=== PATIENT | male | born 1955 ===

== ENCOUNTER → 2016-12-08 | Outpatient (CLI) | payer OTHER | END | disposition home or self-care (01) | LOC: C.LABMFLN 09:16 | PROVIDERS: ATTEND Family Medicine | DX: E78.00 Pure hypercholesterolemia, unspecified (principal); G20 Parkinson's disease; I10 Essential (primary) hypertension; R80.9 Proteinuria, unspecified ==

== ENCOUNTER → 2017-04-06 | Outpatient (CLI) | payer OTHER ==
[2017-04-06 18:38] LABS: RATIO 10.7 mcg/mg (0-30.0)
[2017-04-06 18:58] LABS: ALT/SGPT 18 U/L (12-78); AST/SGOT 17 U/L (15-37); BLOOD UREA NITROGEN 20 mg/dl (7-18); BUN/CREATININE RATIO 21.2 (10-20); CALCIUM 8.7 mg/dl (8.5-10.1); CARBON DIOXIDE 27 mmol/L (21-32); CHLORIDE 107 mmol/L (98-107); CHOLESTEROL 145 mg/dl (0-200); CREATININE 0.95 mg/dl (0.60-1.40); GLUCOSE 204 mg/dl (70-99); SODIUM 141 mmol/L (136-145)
[2017-04-06 19:01] LABS: ALB/GLOB RATIO 1.2 (0.9-2); ALKALINE PHOSPHATASE 89 U/L (45-117); CHOLESTEROL/HDL RATIO 3.3; HDL CHOLESTEROL 44 mg/dl; LDL CHOLESTEROL CALCULATED 74 mg/dl; TRIGLYCERIDES 133 mg/dl (0-150); VERY LOW DENSITY LIPOPROT CALC 27 mg/dl
[2017-04-07 07:00] LABS: ESTIMATED AVERAGE GLUCOSE 183 mg/dl; HA1C FLAG Normal (Normal)
== END | disposition home or self-care (01) ==
LOC: C.LABMFLN 15:47
PROVIDERS: ATTEND Family Medicine
DX: E78.00 Pure hypercholesterolemia, unspecified (principal); I10 Essential (primary) hypertension; E11.65 Type 2 diabetes mellitus with hyperglycemia

== ENCOUNTER → 2017-05-22 | Outpatient (CLI) | payer OTHER ==
[2017-05-22 18:15] LABS: BLOOD UREA NITROGEN 15 mg/dl (7-18); BUN/CREATININE RATIO 14.8 (10-20)
== END | disposition home or self-care (01) ==
LOC: C.LABMFLN 16:04
PROVIDERS: ATTEND Family Medicine
DX: G20 Parkinson's disease (principal)

== ENCOUNTER → 2017-08-17 | Outpatient (CLI) | payer OTHER ==
[2017-08-17 17:55] LABS: ALT/SGPT 13 U/L (12-78); AST/SGOT 16 U/L (15-37); BLOOD UREA NITROGEN 17 mg/dl (7-18); BUN/CREATININE RATIO 17.4 (10-20); CALCIUM 8.9 mg/dl (8.5-10.1); CARBON DIOXIDE 29 mmol/L (21-32); CHLORIDE 106 mmol/L (98-107); CREATININE 0.98 mg/dl (0.60-1.40); GLUCOSE 144 mg/dl (70-99); POTASSIUM 4.5 mmol/L (3.5-5.1); SODIUM 141 mmol/L (136-145)
[2017-08-17 18:06] LABS: ALB/GLOB RATIO 1.2 (0.9-2); ALKALINE PHOSPHATASE 94 U/L (45-117); CHOLESTEROL 111 mg/dl (0-200); CHOLESTEROL/HDL RATIO 2.2; HDL CHOLESTEROL 51 mg/dl; LDL CHOLESTEROL CALCULATED 41 mg/dl; THYROID STIMULATING HORMONE 0.637 uIu/ml (0.300-4.500); TRIGLYCERIDES 96 mg/dl (0-150); VERY LOW DENSITY LIPOPROT CALC 19 mg/dl
[2017-08-18 06:57] LABS: ESTIMATED AVERAGE GLUCOSE 174 mg/dl; HA1C FLAG Normal (Normal)
== END | disposition home or self-care (01) ==
LOC: C.LABMFLN 12:33
PROVIDERS: ATTEND Family Medicine
DX: E78.00 Pure hypercholesterolemia, unspecified (principal); I10 Essential (primary) hypertension; E11.65 Type 2 diabetes mellitus with hyperglycemia

== ENCOUNTER → 2017-12-05 | Outpatient (CLI) | payer OTHER ==
[2017-12-05 12:34] LABS: BASO % 0.2 %; BASO ABS # 0.01 K/uL (0-0.2); EOS % 0.9 %; EOS ABS # 0.06 K/uL (0-0.5); HEMOGLOBIN 16.9 g/dL (14.0-18.0); IG# 0.01 K/uL (0.00-0.02); LYMPH ABS # 1.75 K/uL (1.2-3.4); MEAN CELL VOLUME 89.7 fL (80-100); MEAN CORPUSCULAR HEMOGLOBIN 31.6 pg (25-34); MEAN CORPUSCULAR HGB CONC 35.2 g/dl (32-36); MEAN PLATELET VOLUME 10.3 fL (7.4-10.4); MONO ABS # 0.58 K/uL (0.11-0.59); NEUT % 62.7 %; NEUT ABS # 4.06 K/uL (1.4-6.5); PLATELET COUNT 254 K/uL (130-400); RED CELL DISTRIBUTION WIDTH CV 13.1 % (11.5-14.5); RED CELL DISTRIBUTION WIDTH SD 42.7 fL (36.4-46.3); WHITE BLOOD COUNT 6.47 K/uL (4.8-10.8)
[2017-12-05 12:43] LABS: PTT PATIENT 25.1 SECONDS (21.0-31.0)
[2017-12-05 12:56] LABS: BLOOD UREA NITROGEN 15 mg/dl (7-18); CREATININE 1.04 mg/dl (0.60-1.40); GLUCOSE 156 mg/dl (70-99); SODIUM 140 mmol/L (136-145)
[2017-12-05 12:57] LABS: ALT/SGPT 15 U/L (12-78); CALCIUM 8.9 mg/dl (8.5-10.1); CARBON DIOXIDE 28 mmol/L (21-32); CHOLESTEROL 198 mg/dl (0-200); POTASSIUM 4.1 mmol/L (3.5-5.1)
[2017-12-05 12:58] LABS: HEMOGLOBIN A1C 8.1 % (4.5-5.6)
[2017-12-05 13:01] LABS: ALKALINE PHOSPHATASE 86 U/L (45-117); AST/SGOT 18 U/L (15-37); LDL CHOLESTEROL CALCULATED 120 mg/dl; TOTAL PROTEIN 7.7 gm/dl (6.4-8.2)
== END ==
LOC: C.LABMFLN 09:14
PROVIDERS: ATTEND Family Medicine
DX: E78.00 Pure hypercholesterolemia, unspecified (principal); I10 Essential (primary) hypertension; E11.65 Type 2 diabetes mellitus with hyperglycemia; Z12.5 Encounter for screening for malignant neoplasm of prostate; G20 Parkinson's disease

== ENCOUNTER → 2018-02-05 | Outpatient (CLI) | payer OTHER ==
[2018-02-05 18:38] LABS: ALBUMIN 3.8 gm/dl (3.4-5.0); ALT/SGPT 11 U/L (12-78); AST/SGOT 18 U/L (15-37); BLOOD UREA NITROGEN 14 mg/dl (7-18); CALCIUM 8.8 mg/dl (8.5-10.1); CARBON DIOXIDE 30 mmol/L (21-32); CHOLESTEROL 193 mg/dl (0-200); CREATININE 1.03 mg/dl (0.60-1.40); GLUCOSE 142 mg/dl (70-99); SODIUM 139 mmol/L (136-145)
[2018-02-05 18:43] LABS: ALKALINE PHOSPHATASE 101 U/L (45-117); LDL CHOLESTEROL CALCULATED 102 mg/dl; TOTAL PROTEIN 7.2 gm/dl (6.4-8.2)
[2018-02-06 06:11] LABS: HEMOGLOBIN A1C 9.2 % (4.5-5.6)
== END | disposition home or self-care (01) ==
LOC: C.LABMFLN 10:58
PROVIDERS: ATTEND Family Medicine
DX: I10 Essential (primary) hypertension (principal); Z00.00 Encounter for general adult medical examination without abnormal findings; E11.65 Type 2 diabetes mellitus with hyperglycemia; E78.00 Pure hypercholesterolemia, unspecified

== ENCOUNTER → 2018-05-29 | Outpatient (CLI) | payer OTHER ==
[2018-05-29 12:57] LABS: HEMOGLOBIN A1C 9.2 % (4.5-5.6)
[2018-05-29 13:07] LABS: ALBUMIN 3.7 gm/dl (3.4-5.0); ALKALINE PHOSPHATASE 85 U/L (45-117); ALT/SGPT 12 U/L (12-78); AST/SGOT 17 U/L (15-37); BLOOD UREA NITROGEN 15 mg/dl (7-18); CALCIUM 8.2 mg/dl (8.5-10.1); CARBON DIOXIDE 31 mmol/L (21-32); CHOLESTEROL 124 mg/dl (0-200); CREATININE 0.93 mg/dl (0.60-1.40); GLUCOSE 195 mg/dl (70-99); LDL CHOLESTEROL CALCULATED 67 mg/dl; POTASSIUM 3.8 mmol/L (3.5-5.1); SODIUM 138 mmol/L (136-145); TOTAL PROTEIN 6.7 gm/dl (6.4-8.2)
== END | disposition home or self-care (01) ==
LOC: C.LABMFLN 10:43
PROVIDERS: ATTEND Family Medicine
DX: E78.00 Pure hypercholesterolemia, unspecified (principal); I10 Essential (primary) hypertension; E11.65 Type 2 diabetes mellitus with hyperglycemia

== ENCOUNTER 2022-04-20 19:55 | Inpatient (IN) ==
[2022-04-20] MEDS ORDERED: LORazepam 2 MG/1 ML VIAL ONE (20:21)
[2022-04-20] MEDS ORDERED: OLANZapine 10 MG/2.1 ML SDV IM STA (20:22)
[2022-04-20] MEDS ORDERED: OLANZapine 10 MG/2.1 ML SDV IM ONE (20:22)
[2022-04-20] MEDS ORDERED: LORazepam 1 MG in SYRINGE 0.5 ML IV STA ×2 (20:22→20:51)
--- NOTE | 2022-04-20 20:29 | Emergency Department Note ---
Impression & Plan Delirium, Parkinson disease, Agitation, Elevated troponin ED Provider Note NAME: FERNANDO YADAV AGE: 66 SEX: M : 1955 ARRIVES VIA: Ambulance INFORMANT: [family, nursing] ED PROVIDER(S): [Jaylen Smith MD] CHIEF COMPLAINT: Agitation, altered HISTORY OF PRESENT ILLNESS: The patient is a 66-year-old male who has severe Parkinson's. He was just at [facility] and had one of the brain stimulators removed because of infection. He has a PICC line in where he is to receive antibiotics. Yesterday, he went to rehab and was a bit agitated on the drive there. Today, around 4 to 5 hours ago, he became quite agitated and threatening and [id number]. He was brou [facility] for evaluation. The patient has not been taking his medications for Parkinson's since arriving at rehab. There has been no reported fever or vomiting. No reported fall. Given the circumstances and his mental state, no further history obtainable. REVIEW OF SYSTEMS: Unobtainable given the mental state. PMHx/PSHx: See Below SOCIAL HISTORY: See Below. PHYSICAL EXAM: GENERAL: Patient is in significant distress, quite agitated, security is at the bedside HEENT: No acute trauma, normocephalic atraumatic, mucous membranes dry, no nasal congestion, no scleral icterus. NECK: No stridor, no adenopathy, no meningismus, trachea is midline. LUNGS: Clear to auscultation bilaterally, no wheeze, no rhonchi, breath sounds equal. But this exam was difficult as the patient was talking and not cooperative. HEART: Without murmurs gallops or rubs, regular rate and rhythm. But this exam was difficult as the patient was talking and uncooperative. ABDOMEN: Soft, nontender, no peritonitis. EXTREMITIES: No cyanosis or edema, full range of motion of all the joints without pain or difficulty. NEUROLOGIC: Agitated, confused, moving all extremities, awake. SKIN: No rash, no jaundice, no diaphoresis. DIFFERENTIAL DIAGNOSIS: Infection, intracranial bleeding, adjustment reaction, medication noncompliance, Parkinson's flare, dementia flare, dehydration, electrolyte imbalance, among others. EMERGENCY DEPARTMENT COURSE/PROCEDURES: ECG: Indication was agitation and altered mental state. The ECG shows a normal sinus rhythm with a rate of 93. There are biphasic nonspecific T waves in the inferior and lateral leads. No ST elevation, no PVCs. The QTc is 437. No old ECGs available for comparison. Continuous Cardiac Monitoring: An order was placed for continuous cardiac monitoring. The monitor shows a rate of 92 with normal sinus rhythm. Critical Care Note: I have personally spent 61 minutes of critical care time in the direct management of this patient. This includes bedside care, interpretation of diagnostic studies, and testing, discussion with consultants, patient, and family members, and other required patient management activities. This 61 minutes is in excess of all separately billable procedures. MEDICAL DECISION MAKING: There is no leukocytosis or concerning anemia. There is a normal platelet count. No electrolyte abnormality, no renal failure. Lactic acid level was somewhat elevated 2.3, consistent with dehydration or possibly infection. No concerning liver enzyme elevation. The patient appeared to be in a euthyroid state. ECG showed a normal sinus rhythm, no ST elevation to suggest acute ische segun. Cardiac enzyme testing x1 is elevated. This elevation could be from mismatch or potential cardiac injury/strain. The troponin will be trended. COVID test returned negative. Chest film did not show pneumonia or CHF. Brain CT showed a lot of artifact but no obvious bleed or mass-effect. On exam, there was no focal weakness. No speech slur. The patient was agitated and somewhat combative. Security was at the bedside. The patient received IV saline, he was given IV Ativan and IM Zyprexa. He received a second dose of IV Ativan. He received IV Haldol. He was given IV fentanyl, a few doses of IV fentanyl were used. The patient did finally relax and fell asleep. Security was no longer needed. I talked at length with the patient's family. I did call and speak with [facility] neurology in [place] (Dr. Garcia). We discussed the case and they were able to review his records from their facility. They suggested switching from cefepime to ceftriaxone as sometimes cefepime can cause delirium. They suggested restarting his medications for agitation and allowing him the rest. They feel that his delirium and agitation is from his recent hospitalization coupled with his rehab. In short, he is out of his normal routine and this change in his routine coupled with his lack of sleep has led to his current presentation. I spoke with the family at length once again. I spoke with the returned case inspector. The on-call hospitalist was consulted. Past Med/Surg History Medical History Adjustment reaction Benign essential hypertension Hypercholesterolemia Hypocalcemia Male erectile disorder Medicare annual wellness visit, subsequent Orthostatic hypotension Parkinson's disease Peripheral neuropathy Seborrheic dermatitis of scalp Vitamin D deficiency Surgical History H/O lithotripsy History of appendectomy History of tonsillectomy Squamous cell carcinoma of left upper extremity Family History Father Colorectal cancer Lung cancer Brother Heart disease Social History Smoking Status: Never smoker Second Hand Exposure: No; Hx Alcohol Use: No Hx Substance Use: No Preferred Language: Citizen Of [place] Visual Impairment: No Limitations Hearing Ability: Normal marital status: Current Living Situation: Spouse Feels Safe at Home: Yes Childhood Exposure to Second-Hand Smoke: No Seatbelt Use: always Sunscreen Use: Yes Allergies Allergies Allergy/AdvReac Type Severity Reaction Status Date / Time ibuprofen Allergy Unknown Verified 04/20/22 21:17 lisinopril Allergy Unknown Verified 04/20/22 21:17 losartan Allergy Unknown Verified 04/20/22 21:17 Mirapex TABS Allergy Unknown Uncoded 04/20/22 21:17 Home Meds Home Medications Medication Instructions Recorded Confirmed Maxipime Ivpb 2gm=50ml See Rx Instructions .ROUTE .COMPLEX 04/20/22 04/20/22 Vancocin 1,462mt=[id number] 0 ml IV BID 04/20/22 04/20/22 acetaminophen 325 mg tablet 650 mg PO Q4 PRN 04/20/22 04/20/22 (Tylenol) amlodipine 2.5 mg tablet 2.5 mg PO DAILY 04/20/22 04/20/22 carbidopa 25 mg-levodopa 100 mg 2 tab PO .ACHS 04/20/22 04/20/22 tablet (Sinemet) docusate sodium 100 mg tablet 100 mg PO BID 04/20/22 04/20/22 entacapone 200 mg tablet 200 mg PO QID 04/20/22 04/20/22 levodopa 42 mg capsule with 84 mg INHALATION .5XSDAY PRN 04/20/22 04/20/22 inhalation device (Inbrija) magnesium hydroxide 400 mg/5 mL 30 ml PO DAILY PRN 04/20/22 04/20/22 oral suspension (Milk of Magnesia) pantoprazole 40 mg tablet,delayed 40 mg PO DAILY 04/20/22 04/20/22 release (Protonix) pravastatin 10 mg tablet 10 mg PO HS 04/20/22 04/20/22 quetiapine 25 mg tablet 12.5 mg PO HS 04/20/22 04/20/22 sennosides 8.6 mg-docusate sodium 1 tab-cap PO DAILY PRN 04/20/22 04/20/22 50 mg tablet (Senokot-S) sodium chloride 0.9 % (flush) 10 ml IV BID 04/20/22 04/20/22 (Normal Saline Flush) sodium phosphates 19 gram-7 133 ml IL DAILY PRN 04/20/22 04/20/22 gram/118 mL enema (Fleet Enema) Results & Data (ED) Vital Signs Vital Signs - 24 hr 04/20/22 20:39 04/20/22 21:20 04/20/22 21:22 Temperature Temperature Source Pulse Rate 108 H Pulse Rate [Apical] 108 H Pulse Rhythm Regular Respiratory Rate 22 22 Respiratory Effort / Characteristics Respiratory Depth Blood Pressure [Right Arm] Blood Pressure Mean [Right Arm] Pulse Oximetry 99 99 Oxygen Delivery Method Room Air Room Air Sepsis Recent Fever Within 48 Hours No Sepsis New/Unexplained Change in Mental Status Yes Sepsis Action Taken by Nursing No Action Required 04/20/22 22:40 04/20/22 23:27 Temperature 36.5 C Temperature Source Axillary Pulse Rate Pulse Rate [Apical] 90 Pulse Rhythm Respiratory Rate 18 Respiratory Effort / Characteristics Non-Labored Spontaneous Respiratory Depth Normal Blood Pressure [Right Arm] 138/78 Blood Pressure Mean [Right Arm] 98 Pulse Oximetry 93 Oxygen Delivery Method Room Air Sepsis Recent Fever Within 48 Hours Sepsis New/Unexplained Change in Mental Status Sepsis Action Taken by Detention Medications Current Medication List: was personally reviewed by me Laboratory Data Attestation: I reviewed the patient's lab results. Result diagrams: 04/20/22 22:25 04/20/22 21:15 Lab Results 04/20/22 04/20/2222 Range/Units 14:11 21:15 21:15 WBC Cancelled RBC Cancelled Hgb Cancelled Hct Cancelled MCV Cancelled MCH Cancelled MCHC Cancelled RDW Std Deviation Cancelled RDW Coeff of Velma Cancelled Plt Count Cancelled MPV Cancelled Immature Gran % (Auto) Cancelled Neut % (Auto) Cancelled Lymph % (Auto) Cancelled [place] % (Auto) Cancelled Eos % (Auto) Cancelled Baso % (Auto) Cancelled Neut # (Auto) Cancelled Lymph # (Auto) Cancelled [place] # (Auto) Cancelled Eos # (Auto) Cancelled Baso # (Auto) Cancelled Immature Gran # (Auto) Cancelled Absolute Nucleated RBC Cancelled Nucleated RBC % (auto) Cancelled Neutrophils % (Manual) Cancelled Band Neutrophils % Cancelled Lymphocytes % (Manual) Cancelled Prolymphocyte % Cancelled Reactive Lymphs % (Man) Cancelled Monocytes % (Manual) Cancelled Eosinophils % (Manual) Cancelled Basophils % (Manual) Cancelled Metamyelocytes % (Man) Cancelled Myelocytes % (Man) Cancelled Promyelocytes % (Man) Cancelled Blast Cells % (Manual) Cancelled Plasma Cell % (Manual) Cancelled Other Cells % Cancelled Nucleated RBC % Cancelled Neutrophils # (Manual) Cancelled Band Neutrophils # Cancelled Total Absolute Neuts Cancelled Lymphocytes # (Manual) Cancelled Prolymphocyte # Cancelled Reactive Lymphs # Cancelled Total Abs Lymphocytes Cancelled Monocytes # (Manual) Cancelled Eosinophils # (Manual) Cancelled Basophils # (Manual) Cancelled Metamyelocytes # (Man) Cancelled Myelocytes # (Manual) Cancelled Promyelocytes # (Man) Cancelled Blast Cells # (Man) Cancelled Plasma Cell # (Manual) Cancelled Other Cells # Cancelled Nucleated RBCs # (Man) Cancelled Hypersegmented Neuts Cancelled Hyposegmented Neuts Cancelled Hypogranular Neuts Cancelled Large Granular Lymphs Cancelled # Lrg Granular Lymphs Cancelled Hairy Cells Cancelled Smudge Cells Cancelled Toxic Granulation Cancelled Toxic Vacuolation Cancelled Dohle Bodies Cancelled Anthony Rods Cancelled Platelet Estimate Cancelled Hypogranular Platelets Cancelled Clumped Platelets Cancelled Giant Platelets Cancelled Platelet Satelliting Cancelled RBC Morphology Cancelled Polychromasia Cancelled Hypochromasia Cancelled Poikilocytosis Cancelled Basophilic Stippling Cancelled Anisocytosis Cancelled Microcytosis Cancelled Macrocytosis Cancelled Spherocytes Cancelled Pappenheimer Bodies Cancelled Sickle Cells Cancelled Target Cells Cancelled Tear Drop Cells Cancelled Ovalocytes Cancelled Stomatocytes Cancelled [place] Bodies Cancelled Echinocytes Cancelled Acanthocytes (Spur) Cancelled Rouleaux Cancelled RBC Agglutinates Cancelled Schistocytes Cancelled Sezary Cell Cancelled Sodium 139 (136-145) mmol/L Potassium 4.2 (3.5-5.1) mmol/L Chloride 108 H (98-107) mmol/L Carbon Dioxide 24 (21-32) mmol/L Anion Gap 7 (3-11) BUN 19 (6-23) mg/dl Creatinine 0.96 (0.6-1.4) mg/dl Est Cr Clr Drug Dosing Not Reportable Est GFR ( Amer) 95.1 ml/min Est GFR (Non-Af Amer) 82.0 ml/min BUN/Creatinine Ratio 19.8 (10-20) Glucose 196 H (70-99(Fasting)) mg/dl POC Glucose (70-99) mg/dl Lactate (0.4-2.0) mmol/L Calcium 8.6 (8.5-10.1) mg/dl Magnesium 2.0 (1.7-2.4) mg/dl Total Bilirubin 0.8 (0.2-1.0) mg/dl AST 38 (13-39) U/L ALT 5 L (7-52) U/L Alkaline Phosphatase 79 (34-104) U/L Troponin I High Sens 266.3 H* (0-20) pg/ml Total Protein 7.2 (6.0-8.3) gm/dl Albumin 4.2 (3.4-5.0) gm/dl Globulin 3.0 (2.5-4.0) gm/dl Albumin/Globulin Ratio 1.4 (0.9-2) TSH (0.300-4.500) uIu/ml SARS-CoV-2, RNA, NAAT NEGATIVE (NEGATIVE) 04/20/22 04/20/22 04/20/22 Range/Units 21:15 21:47 22:25 WBC RBC Hgb Hct MCV MCH MCHC RDW Std Deviation RDW Coeff of Velma Plt Count MPV Immature Gran % (Auto) Neut % (Auto) Lymph % (Auto) [place] % (Auto) Eos % (Auto) Baso % (Auto) Neut # (Auto) Lymph # (Auto) [place] # (Auto) Eos # (Auto) Baso # (Auto) Immature Gran # (Auto) Absolute Nucleated RBC Nucleated RBC % (auto) Neutrophils % (Manual) Band Neutrophils % Lymphocytes % (Manual) Prolymphocyte % Reactive Lymphs % (Man) Monocytes % (Manual) Eosinophils % (Manual) Basophils % (Manual) Metamyelocytes % (Man) Myelocytes % (Man) Promyelocytes % (Man) Blast Cells % (Manual) Plasma Cell % (Manual) Other Cells % Nucleated RBC % Neutrophils # (Manual) Band Neutrophils # Total Absolute Neuts Lymphocytes # (Manual) Prolymphocyte # Reactive Lymphs # Total Abs Lymphocytes Monocytes # (Manual) Eosinophils # (Manual) Basophils # (Manual) Metamyelocytes # (Man) Myelocytes # (Manual) Promyelocytes # (Man) Blast Cells # (Man) Plasma Cell # (Manual) Other Cells # Nucleated RBCs # (Man) Hypersegmented Neuts Hyposegmented Neuts Hypogranular Neuts Large Granular Lymphs # Lrg Granular Lymphs Hairy Cells Smudge Cells Toxic Granulation Toxic Vacuolation Dohle Bodies Anthony Rods Platelet Estimate Hypogranular Platelets Clumped Platelets Giant Platelets Platelet Satelliting RBC Morphology Polychromasia Hypochromasia Poikilocytosis Basophilic Stippling Anisocytosis Microcytosis Macrocytosis Spherocytes Pappenheimer Bodies Sickle Cells Target Cells Tear Drop Cells Ovalocytes Stomatocytes [place] Bodies Echinocytes Acanthocytes (Spur) Rouleaux RBC Agglutinates Schistocytes Sezary Cell Sodium (136-145) mmol/L Potassium (3.5-5.1) mmol/L Chloride (98-107) mmol/L Carbon Dioxide (21-32) mmol/L Anion Gap (3-11) BUN (6-23) mg/dl Creatinine (0.6-1.4) mg/dl Est Cr Clr Drug Dosing Est GFR ( Amer) ml/min Est GFR (Non-Af Amer) ml/min BUN/Creatinine Ratio (10-20) Glucose (70-99(Fasting)) mg/dl POC Glucose 165 H (70-99) mg/dl Lactate 2.3 H* (0.4-2.0) mmol/L Calcium (8.5-10.1) mg/dl Magnesium (1.7-2.4) mg/dl Total Bilirubin (0.2-1.0) mg/dl AST (13-39) U/L ALT (7-52) U/L Alkaline Phosphatase (34-104) U/L Troponin I High Sens (0-20) pg/ml Total Protein (6.0-8.3) gm/dl Albumin (3.4-5.0) gm/dl Globulin (2.5-4.0) gm/dl Albumin/Globulin Ratio (0.9-2) TSH 0.916 (0.300-4.500) uIu/ml SARS-CoV-2, RNA, NAAT (NEGATIVE) 04/20/22 Range/Units 22:25 WBC 8.80 RBC 4.86 Hgb 15.4 Hct 44.2 MCV 90.9 MCH 31.7 MCHC 34.8 RDW Std Deviation 42.7 RDW Coeff of Velma 12.7 Plt Count 221 MPV 9.2 Immature Gran % (Auto) 0.1 Neut % (Auto) 77.4 Lymph % (Auto) 10.5 [place] % (Auto) 11.6 Eos % (Auto) 0.3 Baso % (Auto) 0.1 Neut # (Auto) 6.81 H Lymph # (Auto) 0.92 L [place] # (Auto) 1.02 H Eos # (Auto) 0.03 Baso # (Auto) 0.01 Immature Gran # (Auto) 0.01 Absolute Nucleated RBC Nucleated RBC % (auto) Neutrophils % (Manual) Band Neutrophils % Lymphocytes % (Manual) Prolymphocyte % Reactive Lymphs % (Man) Monocytes % (Manual) Eosinophils % (Manual) Basophils % (Manual) Metamyelocytes % (Man) Myelocytes % (Man) Promyelocytes % (Man) Blast Cells % (Manual) Plasma Cell % (Manual) Other Cells % Nucleated RBC % Neutrophils # (Manual) Band Neutrophils # Total Absolute Neuts Lymphocytes # (Manual) Prolymphocyte # Reactive Lymphs # Total Abs Lymphocytes Monocytes # (Manual) Eosinophils # (Manual) Basophils # (Manual) Metamyelocytes # (Man) Myelocytes # (Manual) Promyelocytes # (Man) Blast Cells # (Man) Plasma Cell # (Manual) Other Cells # Nucleated RBCs # (Man) Hypersegmented Neuts Hyposegmented Neuts Hypogranular Neuts Large Granular Lymphs # Lrg Granular Lymphs Hairy Cells Smudge Cells Toxic Granulation Toxic Vacuolation Dohle Bodies Anthony Rods Platelet Estimate Hypogranular Platelets Clumped Platelets Giant Platelets Platelet Satelliting RBC Morphology Polychromasia Hypochromasia Poikilocytosis Basophilic Stippling Anisocytosis Microcytosis Macrocytosis Spherocytes Pappenheimer Bodies Sickle Cells Target Cells Tear Drop Cells Ovalocytes Stomatocytes [place] Bodies Echinocytes Acanthocytes (Spur) Rouleaux RBC Agglutinates Schistocytes Sezary Cell Sodium (136-145) mmol/L Potassium (3.5-5.1) mmol/L Chloride (98-107) mmol/L Carbon Dioxide (21-32) mmol/L Anion Gap (3-11) BUN (6-23) mg/dl Creatinine (0.6-1.4) mg/dl Est Cr Clr Drug Dosing Est GFR ( Amer) ml/min Est GFR (Non-Af Amer) ml/min BUN/Creatinine Ratio (10-20) Glucose (70-99(Fasting)) mg/dl POC Glucose (70-99) mg/dl Lactate (0.4-2.0) mmol/L Calcium (8.5-10.1) mg/dl Magnesium (1.7-2.4) mg/dl Total Bilirubin (0.2-1.0) mg/dl AST (13-39) U/L ALT (7-52) U/L Alkaline Phosphatase (34-104) U/L Troponin I High Sens (0-20) pg/ml Total Protein (6.0-8.3) gm/dl Albumin (3.4-5.0) gm/dl Globulin (2.5-4.0) gm/dl Albumin/Globulin Ratio (0.9-2) TSH (0.300-4.500) uIu/ml SARS-CoV-2, RNA, NAAT (NEGATIVE) Administered Medications Discontinued Medications Diphenhydramine HCl (Diphenhydramine 50 Mg/Ml Vial) 12.5 mg IV NOW STA Stop: 04/20/22 21:36 Last Admin: 04/20/22 21:53 Dose: Not Given Documented by: [id number] Fentanyl Citrate (Fentanyl Citrate 100 Mcg/2 Ml Vial) 50 mcg IV NOW ONE Stop: 04/20/22 21:36 Last Admin: 04/20/22 21:53 Dose: Not Given Documented by: [id number] Fentanyl Citrate (Fentanyl Citrate 100 Mcg/2 Ml Vial) 50 mcg IV NOW STA Stop: 04/20/22 22:07 Last Admin: 04/20/22 22:31 Dose: 50 mcg Documented by: [id number] Fentanyl Citrate (Fentanyl Citrate 100 Mcg/2 Ml Vial) 25 mcg IV NOW STA Stop: 04/20/22 22:35 Last Admin: 04/20/22 22:38 Dose: 25 mcg Documented by: [id number] Fentanyl Citrate (Fentanyl Citrate 100 Mcg/2 Ml Vial) 50 mcg IV NOW STA Stop: 04/20/22 22:46 Last Admin: 04/20/22 23:32 Dose: 25 mcg Documented by: [id number] Fentanyl Citrate (Fentanyl Citrate 100 Mcg/2 Ml Vial) 50 mcg IV NOW STA Stop: 04/21/22 00:24 Last Admin: 04/21/22 00:29 Dose: 50 mcg Documented by: [id number] Haloperidol Lactate (Haloperidol Lactate 5 Mg/Ml 1 Ml Vial) 2.5 mg IV NOW STA Stop: 04/20/22 21:13 Last Admin: 04/20/22 21:19 Dose: 2.5 mg Documented by: [id number] Haloperidol Lactate (Haloperidol Lactate 5 Mg/Ml 1 Ml Vial) Confirm Administered Dose 5 mg .ROUTE .STK-MED ONE Stop: 04/20/22 21:14 Last Admin: 04/20/22 21:19 Dose: Not Given Documented by: [id number] Lorazepam 1 mg/ Syringe 1 mls @ 2 mls/min IV NOW STA Stop: 04/20/22 20:23 Last Admin: 04/20/22 20:26 Dose: 2 mls/min Documented by: [id number] Sodium Chloride (Nss) 500 mls @ 999 mls/hr IV .Q31M DOUG Stop: 04/20/22 21:00 Last Infusion: 04/21/22 00:22 Dose: 0 mls/hr Documented by: [id number] Admin: 04/20/22 23:27 Dose: 999 mls/hr Documented by: [id number] Lorazepam 1 mg/ Syringe 1 mls @ 2 mls/min IV NOW STA Stop: 04/20/22 20:52 Last Admin: 04/20/22 21:03 Dose: 2 mls/min Documented by: [id number] Lorazepam (Lorazepam 2 Mg/1 Ml Vial) Confirm Administered Dose 1 mg .ROUTE .STK- MED ONE Stop: 04/20/22 20:22 Last Admin: 04/20/22 20:27 Dose: Not Given Documented by: [id number] Olanzapine (Olanzapine 10 Mg/2.1 Ml Sdv) Confirm Administered Dose 10 mg IM .STK-MED ONE Stop: 04/20/22 20:23 Last Admin: 04/20/22 20:27 Dose: Not Given Documented by: [id number] Olanzapine (Olanzapine 10 Mg/2.1 Ml Sdv) 5 mg IM NOW STA Stop: 04/20/22 20:23 Last Admin: 04/20/22 20:27 Dose: 5 mg Documented by: [id number] Imaging Data Attestation: I personally reviewed and interpreted this imaging study as follows : My Impression: Chest x-ray: Per my review, there is some artifact. There is no pneumonia or CHF. No pneumothorax. Radiologist's Impression: CT HEAD: Limited by motion artifact as well as streak artifact from implanted electrodes. No clear evidence of acute intracranial process. Radiologist: Jona Cueva MD Discharge Plan Visit Data Chief Complaint: Altered Mental Status ED Provider: Jaylen Smith Discharge Problem: Delirium, Parkinson disease, Agitation, Elevated troponin Patient Disposition: Admitted As Inpatient Condition: Fair Forms Stand Alone Forms: My [facility] Prescriptions Prescriptions: No Action acetaminophen [Tylenol] 325 mg Tablet 650 mg PO Q4 PRN (Reason: Pain) RF: 0 sennosides-docusate sodium [Senokot-S] 8.6-50 mg Tablet 1 tab-cap PO DAILY PRN (Reason: Constipation) RF: 0 magnesium hydroxide [Milk of Magnesia] 400 mg/5 mL Suspension 30 ml PO DAILY PRN (Reason: Constipation) RF: 0 Fleet Enema 19-7 gram/118 mL Enema 133 ml IL DAILY PRN (Reason: Constipation) RF: 0 docusate sodium 100 mg Tablet 100 mg PO BID RF: 0 Vancocin 1,[id number] 0 ml IV BID RF: 0 quetiapine 25 mg tablet 12.5 mg PO HS RF: 0 amlodipine 2.5 mg tablet 2.5 mg PO DAILY RF: 0 entacapone 200 mg tablet 200 mg PO QID RF: 0 pravastatin 10 mg Tablet 10 mg PO HS RF: 0 pantoprazole [Protonix] 40 mg Tablet,Delayed Release (Dr/Ec) 40 mg PO DAILY RF: 0 carbidopa-levodopa [Sinemet] 25-100 mg Tablet 2 tab PO .ACHS RF: 0 sodium chloride 0.9 % (flush) [Normal Saline Flush] Syringe 10 ml IV BID RF: 0 Inbrija 42 mg capsule, w/inhalation device 84 mg INHALATION .5XSDAY PRN (Reason: ..) RF: 0 Maxipime Ivpb 2gm=50ml See Rx Instructions .ROUTE .COMPLEX RF: 0 Referrals Referrals: Jaylen Ryan MD [Primary Care Provider] -
[2022-04-20] MEDS ORDERED: SODIUM CHLORIDE 0.9% 500 ML IV SCH (20:30)
[2022-04-20] MEDS ORDERED: HALOPERIDOL LACTATE 5 MG/ML 1 ML VIAL IV STA (21:12)
[2022-04-20] MEDS ORDERED: HALOPERIDOL LACTATE 5 MG/ML 1 ML VIAL ONE (21:13)
[2022-04-20] MEDS ORDERED: fentaNYL citrate 100 MCG/2 ML VIAL IV ONE (21:35)
[2022-04-20] MEDS ORDERED: diphenhydrAMINE 50 MG/ML VIAL IV STA (21:35)
[2022-04-20 21:49] LABS: Alanine Aminotransferase 5 U/L (7-52); Albumin Globulin Ratio 1.4 (0.9-2); Albumin Level 4.2 gm/dl (3.4-5.0); Alkaline Phosphatase 79 U/L (34-104); Anion Gap 7 (3-11); Aspartate Aminotransferase 38 U/L (13-39); BUN Creatinine Ratio 19.8 (10-20); Bilirubin,Total 0.8 mg/dl (0.2-1.0); Blood Urea Nitrogen 19 mg/dl (6-23); Calcium 8.6 mg/dl (8.5-10.1); Carbon Dioxide 24 mmol/L (21-32); Chloride 108 mmol/L (98-107); Est GFR (African American) 95.1 ml/min; Glucose 196 mg/dl (70-99(Fasting)); Potassium 4.2 mmol/L (3.5-5.1); Sodium 139 mmol/L (136-145); Total Protein 7.2 gm/dl (6.0-8.3)
[2022-04-20 22:00] LABS: Troponin I High Sensitivity 266.3 pg/ml (0-20)
[2022-04-20] MEDS ORDERED: fentaNYL citrate 100 MCG/2 ML VIAL IV STA ×3 (22:06→22:45)
[2022-04-20 22:40] LABS: Basophils # (auto) 0.01 K/uL (0-0.2); Basophils % (auto) 0.1 %; Eosinophils # (auto) 0.03 K/uL (0-0.5); Eosinophils % (auto) 0.3 %; Hematocrit (blood only) 44.2 % (42-52); Hemoglobin 15.4 g/dL (14.0-18.0); Immature Granulocytes # (auto) 0.01 K/uL (0.00-0.02); Immature Granulocytes % (auto) 0.1 %; Lymphocytes # (auto) 0.92 K/uL (1.2-3.4); Lymphocytes % (auto) 10.5 %; Mean Corpuscular Hemoglobin 31.7 pg (25-34); Mean Corpuscular Hgb Conc 34.8 g/dL (32-36); Mean Corpuscular Volume 90.9 fL (80-100); Mean Platelet Volume 9.2 fL (7.4-10.4); Monocytes # (auto) 1.02 K/uL (0.11-0.59); Monocytes % (auto) 11.6 %; Neutrophils # (auto) 6.81 K/uL (1.4-6.5); Neutrophils % (auto) 77.4 %; Platelet Count 221 K/uL (130-400); RDW Coefficient of Variation 12.7 % (11.5-14.5); RDW Standard Deviation 42.7 fL (36.4-46.3); Red Blood Count 4.86 M/uL (4.7-6.1)
[2022-04-21] MEDS ORDERED: fentaNYL citrate 100 MCG/2 ML VIAL IV STA (00:23)
[2022-04-21] MEDS ORDERED: cefTRIAXone SODIUM 2,000 MG/70 ML BAG IV STA (00:37)
[2022-04-21] MEDS ORDERED: LORazepam 1 MG in SYRINGE 0.5 ML IV STA (00:48)
--- NOTE | 2022-04-21 00:51 | History & Physical Report ---
Date of Service April 21, 2022 Assessment & Plan (1) Agitation: Plan: 66yo male with a history of Parkinson's disease s/p bilateral DBS placement (2018), left DBS generator wound infection s/p removal (04/18/22), HTN, HLD, and DM2 presents with a two-day history of episodic agitation and combativeness in the setting of recent left-sided DBS removal and wound washout for surgical site infection. Delirium, agitation, combativeness, Parkinson's disease, left DBS line infection s/p removal Patient with new acute-onset episodic delirium in the setting of recent DBS line removal due to infection On admission, mildly tachycardic to 100s, vitals otherwise stable, patient afebrile In the ED, patient required a total of 3mg ativan, 5mg zyprexa, 2.5mg haldol, and 225mcg fentanyl before combativeness resolved No leukocytosis, no electrolyte derangements, LFTs wnl Lactate 2.3 on admission, repeat wnl (1.5) Blood cultures pending, UA + culture pending EKG: NSR, nonspecific T wave abnormality, no overt ischemic change, QTc not pr olonged (437) CT head: motion artifact but no evidence of acute intracranial abnormality Neurology consult placed, recommendations appreciated Psychiatry consult placed for review of med regimen, recommendations appreciated Consider ID consult Will hold patient's home med regimen pending biztalk consultant input As per patient's home neurologist's request, will discontinue cefepime and start ceftriaxone IV (to be continued through 05/02/22) Continue vancomycin (to be continued through 05/02/22) Ativan 2mg IV q30min prn agitation NPO pending speech evaluation Trend CBC, BMP Elevated troponin On admission, hsTroponin elevated to 266, repeat 276 Patient without chest pain (per patient's ), no overt ischemic change on EKG Trend q6h until peaks and falls Daily EKG, EKG prn chest pain DM2 HbA1c 8.2% (03/27/22) Patient's home regimen held on admission Continue BSG checks, sliding-scale insulin, hypoglycemic protocol HTN: BP well-controlled at this time; holding home amlodipine (2.5mg PO qd) while NPO HLD: holding home pravastatin (10mg PO qHS) while NPO FEN: NPO pending speech eval, NSS @ 80mL/hr (one bag ordered) Code status: DNR/DNI per my conversation with patient's (patient too sedated) DVT ppx: SCDs PT/OT: holding off on ordering d/t combativeness Case management: consulted regarding difficulty managing at home (e.g. may need a stair lift) Dispo: PCU for tight nursing ratio (2) Delirium: (3) Diabetes mellitus, insulin dependent (IDDM), uncontrolled: (4) Hypertension: (5) Hypercholesterolemia: (6) Parkinson disease: (7) Wound infection: Plan: Pt seen/examined in conjunction with resident MD Everett Camarena. Orders and plan of admission formulated with resident. 66 y/o M Hx HTN, HLD, DM II, advanced Parkinson's with BL deep brain stimulator implants 2017. He had the L DBS generator replaced 03/12 and developed a wound infection in his L chest. He required debridement and washout which was completed 04/18. He was DCd to rehab. He is currently being treated with Cefepime and Vanc. Over the past 2 days, he has had bouts of agitation and combativeness lasting up to an hour. He had a particularly severe episode this AM and was sent to the ER for evaluation therefore. In the ER, he became extremely agitated and required multiple medications including lorazepam, Haldol, Zyprexa and fentanyl before a degree of sedation was achieved. He had a temp of 99.5 on arrival. Labs were notable for a trop of 276. An EKG does not support ischemia. He is unable to participate in the HPI and the preceding information was obtained by his . O/E General: Pt is asleep at the time of my exam, ENT: Could not examine oral cavity Eyes: BRADLY, EOMI Head and neck: Normocephalic, atraumatic, No JVD, neck is supple. Chest/heart: Nontender, S1,2, RRR, no murmurs, no gallops. L chest sutures without evidence of infection. Lungs: CTAB - shallow effort, no wheezing or crackles Abdomen: Nontender, nondistended, BS+ Neuro: Exam deferred due to medication effect Musculoskeletal: No joint inflammation, muscle tenderness, FROM Skin: No acute rashes or ulcers Extremities: No clubbing, cyanosis, edema A/P 1) Agitation - acute - may be due to infection or hospitalisation with underlying Parkinson's. We will request a psychiatry and neurology consult. 2) infection - wound source - his neurologist has requested that we switch from Cefepime to ceftriaxone as apparently Cefepime can affect mentation. We will cont Vanc and have consulted ID. 3) Elevated trop - unclear etiology as he had not c/o CP or SOB. Echo and cardiology consult requested. 4) Parkinson's - he has stopped all meds for a few days. Neurology consulted 5) DM - sliding scale 6) HTN, HLD - cont amlodipine, pravastatin Total time for this admission including review of labs, meds, imaging, records, EKG - exam and discussion with resident - 48 min History of Present Illness Primary Care Provider: Jaylen Ryan MD 66yo male with a history of Parkinson's disease s/p bilateral DBS placement (2017), left DBS generator wound infection s/p removal (04/18/22), HTN, HLD, and DM2 presents with a two-day history of episodic agitation and combativeness. Patient had his left DBS generator replaced on 03/06/22 (by [facility] neurosurgery); unfortunately, the surgical site became infected, requiring neurosurgical removal of the DBS and washout of the wound two days ago (04/18). Patient was discharged to [facility] one day ago (04/19). On the drive to [facility], patient's noted that patient had an hour-long episode of agit ation/delirium during which he was "saying nasty things he would never say to me" as well as making bizarre/delusional statements (e.g. "this is all a conspiracy against me"). Patient's notes this has never happened before, and patient is alert, oriented, and logical at baseline. This agitation/delirium spontaneously resolved prior to arrival to [facility]. Patient's called their neurologist, who recommended discontinuing all Parkinson's meds temporarily to "wash them out" (according to patient's ). Later that night, patient had another episode, and became combative with [facility] staff. Patient's went back to [facility] on 04/20 in the morning, at which time patient had another episode of agitation/delirium, this time lasting 2-3 hours before spontaneously resolving. Between episodes of agitation/delirium, patient was at his baseline, per patient's . Later in the day on 04/20, patient had another episode which was severe enough to prompt presenting to the emergency department. Patient's notes each episode is more severe and longer in duration than the last. In the ED, patient was combative and required three security guards to hold him still; patient required a total of 3mg ativan, 5mg zyprexa, 2.5mg haldol, and 225mcg fentanyl before his combativeness resolved. Patient is currently somnolent and unable to participate in history-taking or ROS, but patient's denies patient has had any recent fever, chills, CP, SOB, abdominal pain, nausea, vomiting, diarrhea, or other symptoms. Of note, patient was placed on vanc/cefepime after his left DBS line was removed; these were to be continued through 05/02/22. However, in response to patient's new-onset delirium, patient's [facility] neurologist recommended discontinuing cefepime and starting ceftriaxone instead due to AMS being a possible a side-effect of cefepime. Allergies Allergy/AdvReac Type Severity Reaction Status Date / Time ibuprofen Allergy Unknown Verified 04/20/22 21:17 lisinopril Allergy Unknown Verified 04/20/22 21:17 losartan Allergy Unknown Verified 04/20/22 21:17 pramipexole [From Mirapex] Allergy Unknown Verified 04/21/22 01:33 Home Medications Medication Instructions Recorded Confirmed Type Maxipime Ivpb 2gm=50ml See Rx Instructions .ROUTE .COMPLEX 04/20/22 04/20/22 History Vancocin 1,870kj=583md 0 ml IV BID 04/20/22 04/20/22 History acetaminophen 325 mg tablet 650 mg PO Q4 PRN 04/20/22 04/20/22 History (Tylenol) amlodipine 2.5 mg tablet 2.5 mg PO DAILY 04/20/22 04/20/22 History carbidopa 25 mg-levodopa 100 mg 2 tab PO .ACHS 04/20/22 04/20/22 History tablet (Sinemet) docusate sodium 100 mg tablet 100 mg PO BID 04/20/22 04/20/22 History entacapone 200 mg tablet 200 mg PO QID 04/20/22 04/20/22 History levodopa 42 mg capsule with 84 mg INHALATION .5XSDAY PRN 04/20/22 04/20/22 History inhalation device (Inbrija) magnesium hydroxide 400 mg/5 mL 30 ml PO DAILY PRN 04/20/22 04/20/22 History oral suspension (Milk of Magnesia) pantoprazole 40 mg tablet,delayed 40 mg PO DAILY 04/20/22 04/20/22 History release (Protonix) pravastatin 10 mg tablet 10 mg PO HS 04/20/22 04/20/22 History quetiapine 25 mg tablet 12.5 mg PO HS 04/20/22 04/20/22 History sennosides 8.6 mg-docusate sodium 1 tab-cap PO DAILY PRN 04/20/22 04/20/22 History 50 mg tablet (Senokot-S) sodium chloride 0.9 % (flush) 10 ml IV BID 04/20/22 04/20/22 History (Normal Saline Flush) sodium phosphates 19 gram-7 133 ml NV DAILY PRN 04/20/22 04/20/22 History gram/118 mL enema (Fleet Enema) Past Med/Surg History Medical History Adjustment reaction Benign essential hypertension Hypercholesterolemia Hypocalcemia Male erectile disorder Medicare annual wellness visit, subsequent Orthostatic hypotension Parkinson's disease Peripheral neuropathy Seborrheic dermatitis of scalp Vitamin D deficiency Surgical History H/O lithotripsy History of appendectomy History of tonsillectomy Squamous cell carcinoma of left upper extremity Family History Father Colorectal cancer Lung cancer Brother Heart disease Social History Smoking Status: Never smoker Second Hand Exposure: No; Do You Dip or Chew Tobacco: No; Hx Alcohol Use: No Hx Substance Use: No Preferred Language: Azerbaijani Communication Ability: Unable Communication Ability Comment: unknown Visual Impairment: No Limitations Hearing Ability: Normal [employer] Required: No Beliefs That Will Affect Care: None marital status: Current Living Situation: Spouse Other Information That Helps Us Care for You: No Feels Safe at Home: Yes Safety Concerns: Feels Safe At This Time Childhood Exposure to Second-Hand Smoke: No Seatbelt Use: always Sunscreen Use: Yes Assistive Devices: Glasses and Walker Physical Exam Physical Exam: Constitutional: somnolent, laying in hospital bed HEENT: NCAT, MMM CV: regular rhythm, no murmur appreciated, extremities well-perfused, no LE edema Resp: mild rhonchi heard at bases bilaterally, no wheezes/rales appreciated, no increased work of breathing GI: soft, nondistended, nontender, BS normoactive MSK: no gross deformities appreciated Skin: sutured surgical site noted on left chest, mild erythema, no purulence Neuro: somnolent but arousable, tremor noted in UE bilaterally, unable to perform full neurologic exam due to sedation Results & Data Results & Data ([facility]) Vital Signs (Past 12 Hours) Vital Signs Temp Pulse Pulse Resp BP Pulse Ox 04/20/22 23:27 36.5 C 04/20/22 22:40 90 18 138/78 93 04/20/22 21:22 108 H 22 99 04/20/22 21:20 108 H 22 99 Resident Activity Tracking Resident Involvement: Resident Care Provided and Wound Care Specialist Coverage Note Care Provided: Adult Hospital Medicine (1) Hypertension Hypertension type: unspecified Qualified Code(s): I10 - Essential (primary) hypertension
[2022-04-21] MEDS ORDERED: LORazepam 2 MG/1 ML VIAL ONE (00:53)
[2022-04-21] MEDS ORDERED: VANCOMYCIN CONSULT ACTIVE PRN (01:25)
[2022-04-21] MEDS ORDERED: LORazepam 2 MG/1 ML VIAL IV PRN (01:33)
[2022-04-21] MEDS ORDERED: VANCOMYCIN HCL 1,750 MG in SODIUM CHLORIDE 0.9% 500 ML IV STA (01:38)
[2022-04-21] MEDS ORDERED: DEXTROSE 50% 50 ML SYRINGE IV PRN (02:50)
[2022-04-21] MEDS ORDERED: CARBOHYDRATES FOR HYPOGLYCEMIA PO PRN (02:50)
[2022-04-21] MEDS ORDERED: GLUCOSE 10 TABS/TUBE PO PRN (02:50)
[2022-04-21] MEDS ORDERED: GLUCOSE 40% GEL 15 GM TUBE PO PRN (02:50)
[2022-04-21] MEDS ORDERED: GLUCAGON FOR INJ 1 MG VIAL SQ PRN (02:50)
[2022-04-21] MEDS ORDERED: SODIUM CHLORIDE 0.9% 1000ML 1,000 ML IV SCH (03:16)
[2022-04-21] MEDS: LORazepam 2 MG in SYRINGE 1 ML IV PRN ×8 (03:58→15:39)
[2022-04-21] MEDS: INSULIN ASPART PER UNIT SC SCH ×3 (05:33→18:10)
[2022-04-21 06:51] LABS: Basophils # (auto) 0.01 K/uL (0-0.2); Basophils % (auto) 0.1 %; Eosinophils % (auto) 1.3 %; Hematocrit (blood only) 45.7 % (42-52); Hemoglobin 16.2 g/dL (14.0-18.0); Immature Granulocytes # (auto) 0.01 K/uL (0.00-0.02); Immature Granulocytes % (auto) 0.1 %; Lymphocytes # (auto) 0.94 K/uL (1.2-3.4); Lymphocytes % (auto) 12.3 %; Mean Corpuscular Hemoglobin 31.9 pg (25-34); Mean Corpuscular Hgb Conc 35.4 g/dL (32-36); Mean Platelet Volume 9.8 fL (7.4-10.4); Monocytes # (auto) 1.01 K/uL (0.11-0.59); Monocytes % (auto) 13.2 %; Neutrophils # (auto) 5.59 K/uL (1.4-6.5); Platelet Count 159 K/uL (130-400); RDW Coefficient of Variation 12.7 % (11.5-14.5); RDW Standard Deviation 41.8 fL (36.4-46.3); Red Blood Count 5.08 M/uL (4.7-6.1); White Blood Count 7.66 K/uL (4.8-10.8)
--- NOTE | 2022-04-21 06:53 | CT Scan Report ---
CT head/brain wo con CLINICAL HISTORY: 66 years-old Male with altered. Acutely altered mental status TECHNIQUE: Multiple axial CT images of the head were obtained without contrast. A dose lowering tech nique was utilized adhering to the principles of ALARA. CT DOSE: 1842.80 mGy.cm COMPARISON: None. FINDINGS: No acute intracranial hemorrhage, midline shift, intracranial mass, hydrocephalus, territorial ischem ia or abnormal extra-axial collection. Motion degraded exam. The study is limited secondary to motion degradation and streak artifact from the bilateral neurostimulator device is with distal leads overl kulwinder the thalami. The study was repeated twice. All 3 sets of images are motion degraded. Nonspecific white matter hypodensities likely represent chronic microvascular ischemic disease. Chronic appearin g right cerebellar lacunar infarct. The calvarium is intact. The paranasal sinuses, mastoid air cells, and middle ear cavities are clear . IMPRESSION: 1. Limited study as above. No acute intracranial abnormality identified. 2. Chronic appearing right cerebellar lacunar infarct. 3. Neurostimulator device electrodes overlie the bilateral thalami. ACT 112: Negative or not required by law. The above report was generated using voice recognition software. It may contain grammatical, syntax o r spelling errors. Electronically signed by: Chino Solis M.D. 04/21/2022 6:51 AM
--- NOTE | 2022-04-21 07:16 | XRay Report ---
SINGLE VIEW CHEST CLINICAL HISTORY: Generalized weakness. FINDINGS: An AP, portable, semierect chest radiograph is obtained. No prior studies are available for comparison at the time of dictation. The examination is degraded by portable technique and patient r otation. Electronic device largely obscures the right apex. A left-sided PICC line is in place. The t ip projects over the right atrium. The heart is top normal for projection. The lungs and pleural spac es are clear. No pneumothorax is seen. The skeletal structures are osteopenic. The bony thorax is negin ssly intact. IMPRESSION: 1. No acute cardiopulmonary abnormality is identified. 2. A left PICC line is in place. The tip projects over the right atrium. ACT 112: Negative or not required by law. Electronically signed by: Jaylen Ramírez M.D. 04/21/2022 7:15 AM
--- NOTE | 2022-04-21 08:07 | Hospitalist Progress Note ---
Date of Service April 21, 2022 Assessment & Plan (1) Agitation: Plan: 66yo male with a history of Parkinson's disease s/p bilateral DBS placement (2018), left DBS generator wound infection s/p removal (04/18/22), HTN, HLD, and DM2 presents with a two-day history of episodic agitation and combativeness in the setting of recent left-sided DBS removal and wound washout for surgical site infection. Delirium, agitation, combativeness, Parkinson's disease -Patient with new acute-onset episodic delirium in the setting of recent deep brain stimulation (DBS) line removal due to infection -On admission, mildly tachycardic to 100s, vitals otherwise stable, patient afebrile -In the ED, patient required a total of 3mg Ativan, 5 mg Zyprexa, 2.5mg Haldol, and 225mcg fentanyl before combativeness resolved -No leukocytosis, no electrolyte derangements, LFTs wnl. -Lactate 2.3 on admission, repeat wnl (1.5) -Blood cultures pending, UA + culture pending - already on broad spectrum abx- see below -EKG: NSR, nonspecific T wave abnormality, no overt ischemic change, QTc not prolonged (437) -CT head: motion artifact but no evidence of acute intracranial abnormality -NG tube placed, as patient unable to tolerate p.o. -Neurology consult placed: Holding amantadine, benztropine. Otherwise, continue rest of Parkinson's meds per home regimen: * Sinemet 25-100 mg ER twice daily (1 tablet at noon 1 tablet at 3 AM) * [id number] mg IR 7XD. Pharmacy only has carbidopa-levodopa combo pill. Entacapone 200 mg ordered non-formulary (pharmacy has limited supply-56). -Psychiatry consult placed for review of med regimen: * Seroquel 12.5 mg p.o. twice daily as needed; can titrate up to 25 mg 3 times daily as needed. * IV Ativan 2 mg every 2 hours as needed for agitation if patient has to be n.p.o. or if unable to administer Seroquel via NG tube * IV Haldol 2 mg every 4 hours as needed for behavioral emergency * Patient currently n.p.o., pending speech therapy evaluation (likely tomorrow, as patient heavily sedated). * Nutrition consult placed for caloric requirement assessment for NG tube. Appreciate recs. -will check KUB for concern of constipation contributing to symptoms. Left DBS line infection (s/p post removal) * IV vancomycin (through 05/02/22), IV ceftriaxone (through 05/02/2022) * Trend CBC, BMP Elevated troponin-downtrending -On admission, hsTroponin elevated to 266, repeat 276. Currently 236. -Patient without chest pain (per patient's ), no overt ischemic change on EKG * No further work-up indicated DM2 -HbA1c 8.2% (03/27/22) -Patient's home regimen held on admission * Continue BSG checks, sliding-scale insulin, hypoglycemic protocol HTN: BP well-controlled at this time; can give home amlodipine (2.5mg PO qd) via NG tube HLD: holding home pravastatin (10mg PO qHS) until patient on a diet. FEN: NPO pending speech eval, NSS @ 80mL/hr (one bag ordered) Code status: DNR/DNI (per admitting resident's conversation with , as patient heavily sedated) DVT ppx: SCDs PT/OT: holding off on ordering d/t combativeness Case management: consulted regarding difficulty managing at home (e.g. may need a stair lift) Dispo: PCU (2) Delirium: (3) Diabetes mellitus, insulin dependent (IDDM), uncontrolled: (4) Hypertension: (5) Hypercholesterolemia: (6) Parkinson disease: (7) Wound infection: Admission and Anticipated Discharge Date Admission Date: April 21, 2022 Supervising Physician Co-Signing Physician Notes Resident Physician Supervision Note: I independently interviewed and examined the patient and verified the beck his tory and physical, reviewed labs and image studies and agree with resident Dr. Low findings and care plan. Subjective Patient asleep in bed and snoring loudly. He remains asleep despite sternal rub. Per nursing, he has been not required sedation for agitation since 0500. Review of Systems Review of Systems: All systems reviewed & are unremarkable except as noted in HPI & below Physical Exam Physical Exam: General: Thin, loudly snoring man in no acute distress. Unresponsive to sternal rub. HEENT: Normocephalic, atraumatic. EOM intact. Good conjugate gaze. Nares patent. Moist mucosal membranes. Neck: Supple. No lymphadenopathy. Normal ROM. CV: Regular rate and rhythm. Normal S1 and S2. No murmurs gallops or rubs. No pedal edema. Respiratory: Snoring loudly. Paradoxical abdominal breathing. Lungs clear to auscultation bilaterally. No crackles, rhonchi, or wheezes. Abdomen: Soft, nondistended abdomen. No bruits heard on auscultation. No tenderness to deep palpation. No guarding or rebound. Skin: Intact, without rashes, lesions, or erythema. Results & Data Results & Data ([facility]) Vital Signs (Past 12 Hours) Vital Signs Temp Pulse Pulse Resp BP Pulse Ox 04/21/22 07:34 36.9 C 92 H 20 174/76 H 97 04/21/22 03:30 110 H 04/21/22 03:16 37 C 94 H 18 184/109 H 98 04/21/22 01:00 37.5 C 74 18 138/78 100 04/20/22 23:27 36.5 C 04/20/22 22:40 90 18 138/78 93 04/20/22 21:22 108 H 22 99 04/20/22 21:20 108 H 22 99 Resident Activity Tracking Resident Involvement: Resident Care Provided Care Provided: Adult Hospital Medicine (1) Hypertension Hypertension type: unspecified Qualified Code(s): I10 - Essential (primary) hypertension
[2022-04-21 08:26] LABS: Albumin Globulin Ratio 1.3 (0.9-2); BUN Creatinine Ratio 16.3 (10-20); Bilirubin,Total 0.8 mg/dl (0.2-1.0); Calcium 8.1 mg/dl (8.5-10.1); Creatinine Clr Calc Pharmacy 83.7 ml/min; Est GFR (African American) 107.9 ml/min; Est GFR (Non-African American) 93.1 ml/min; Potassium 3.5 mmol/L (3.5-5.1)
[2022-04-21 08:36] LABS: Troponin I High Sensitivity 232.8 pg/ml (0-20)
--- NOTE | 2022-04-21 09:16 | Electrocardiogram Report ---
Test Reason : Blood Pressure : / mmHG Vent. Rate : 093 BPM Atrial Rate : 093 BPM P-R Int : 128 ms QRS Dur : 078 ms QT Int : 352 ms P-R-T Axes : 057 052 011 degrees QTc Int : 437 ms Poor data quality, interpretation may be adversely affected Normal sinus rhythm Nonspecific ST and T wave abnormality Anterolateral leads Abnormal ECG No previous ECGs available Confirmed by Kenji Kelley ([id number]) on 04/21/2022 9:16:19 AM Referred By: REFERRED SELF Confirmed By:Kenji Kelley
--- NOTE | 2022-04-21 09:17 | Electrocardiogram Report ---
Test Reason : Blood Pressure : / mmHG Vent. Rate : 090 BPM Atrial Rate : 090 BPM P-R Int : 126 ms QRS Dur : 074 ms QT Int : 374 ms P-R-T Axes : 059 050 -16 degrees QTc Int : 457 ms Normal sinus rhythm T-wave inversion in Anterolateral leads , consider ischemia T-wave inversion in Inferior leads , consider ischemia Abnormal ECG When compared with ECG of 20-APR-2022 22:39, T-wave inversion in multiple leads more pronounced Confirmed by Kenji Kelley ([id number]) on 04/21/2022 9:17:22 AM Referred By: REFERRED SELF Confirmed By:Kenji Kelley
--- NOTE | 2022-04-21 09:31 | Pharmacy Report ---
Pharmacy PK ABX Note - Date of Service April 21, 2022 - Assessment and Plan Assessment 66yo male presenting from [facility] with a history of Parkinson's disease s/p bilateral DBS placement (2017), left DBS generator wound infection s/p removal and wound washout (04/18/22). Per H&P the patient was previously on cefepime + vancomycin with plans to continue through 05/02/22. Neurologist recommended to change cefepime to ceftriaxone. The patient was given a one time dose of vancomycin 1750 mg IV (04/21 @ 0358) upon admission to our facility. I contacted [facility] and received the following information in regards to vancomycin dosing: - received 1250 mg IV 04/20 @ 0952 and 1806 - prior to that patient was on 1000 mg IV q12h with trough level of 11.3 mcg/mL (at [facility]) Plan Vancomycin * Random level ordered for 04/21 @ 1800 to determine further dosing * Target AUC/PATRICIA of 400-600 mg/L.hr Pharmacy will continue to follow and will adjust dose/frequency as necessary. Thank you. Pharmacy has transitioned to AUC monitoring for vancomycin. AUC/PATRICIA is the preferred PK/PD target and is associated with decreased risk of nephrotoxicity compared to traditional trough targets.
--- NOTE | 2022-04-21 11:02 | Psychiatric Consultation ---
Date of Consultation April 21, 2022 Impression / Recommendations Impression 66 yo man with Parkinson's disease presenting with worsening agitation following infection and surgery r/t DBS now with worsening agitation likely hyperactive/agitated delirium. He is currently NPO which limits choice of medication options for agitation management and he required multiple antipsychotics and ativan last evening to treat acute agitation/dangerous behaviors. Given Parkinson's would ideally try to use clozapine, if ANC stable, or seroquel as these are less likely to worsen movement side effects but if IV options are needed then haldol at lowest possible dose with continuous cardiac monitoring is the best option if cardiac status improves/stabilizes-would recommend cardiology weigh in if this becomes necessary to determine if this is a safe option. For now he seems to be responding well to ativan, and safest option with elevated troponin, though this can potentiate and worsen delirium so not a great choice for longer term management if agitation persists. Focus on behavioral and delirium prevention approaches and treating underlying infection and optimizing acute medical issues. Unfortunately Depakote IV isn't available on hospital formulary but could be an option if pharmacy able to get this. Thorazine IM could be back up if agitation doesn't respond to Ativan/alternative antipsychotics. (1) Delirium: (2) Parkinson disease: (3) Agitation: -Would continue ativan IV 2mg q2h prn for agitation until cardiac status improves/stabilizes -Once he is no longer NPO if agitation persists would use seroquel 12.5 mg po BID and can titrate up to 25mg po TID for behavioral management as needed; continue to closely monitor QTc -Continue medical workup to rule out and treat any underlying causes contributing to potential delirium, avoid or limit use of other deliriogenic medications (opioids, anticholinergics) and limit ativan once able -Continue with delirium prevention measures: raising blinds during the day, closing at night, frequent re-orientation, contact with family/friends, explaining procedures/nursing care measures prior to physical contact, correct any hearing and visual impairments -For behavioral emergency: haldol 2mg IV q4h prn (DO NOT exceed 10mg per 24 hours, needs to be on continuous cardiac monitoring, would involve cardiology if requiring frequent doses). -Psychiatry will continue to follow Psych History Identifying Data 66 yo man with history of Parkinson's disease admitted medically following DBS removal d/t infection and subsequent worsening agitation. Psychiatry consulted for medication recommendations. Chief Complaint sleeping History of Present Illness Patient sleeping so history per chart review and discussion with 1-on-1 and patient's RN. It was not felt that it would be beneficial to wake him for assessment as goal is to limit interactions that could contribute to further confusion/agitation. Evgeny has a history of Parkinson's disease with deep brain stimulators since 2017 but the generator for one the DBS implants was replaced in February 2022 and the site on his left chest recently became infected requiring surgical debridement on 04/18/22. Following this surgery he became more irritable and was making some delusions statements and then while at subacute rehab he developed increasing agitation and combativeness resulting in ED presentation. His neurologist had recommended holding his Sinemet and an antibiotic change was made to see if this was contributing to confusion/delusions. While in the ED he required ativan 3mg, zyprexa 5 mg, haldol 2.5mg, and fentanyl 225mcg before combativeness improved. He was admitted overnight and has been receiving IV ativan and is currently NPO. Per his 1-on-1 and RN the ativan seems to work well and he calms down and sleeps. Even while sleeping he moves around frequently and appears agitated per his 1-on-1 but has not been combative this morning and has not been trying to remove any IV lines and allowing medical interventions. He had elevated troponin on admission and is getting frequent EKGs. No QTc prolongation at this time. Past Psychiatric History Past Medication Trials: Sinemet for Parkinson's disease Allergies Allergy/AdvReac Type Severity Reaction Status Date / Time ibuprofen Allergy Unknown Verified 04/20/22 21:17 lisinopril Allergy Unknown Verified 04/20/22 21:17 losartan Allergy Unknown Verified 04/20/22 21:17 pramipexole [From Mirapex] Allergy Unknown Verified 04/21/22 01:33 Home Medications Medication Instructions Recorded Confirmed Type Maxipime Ivpb 2gm=50ml See Rx Instructions .ROUTE .COMPLEX 04/20/22 04/20/22 History Vancocin 1,862ji=984ob 0 ml IV BID 04/20/22 04/20/22 History amlodipine 2.5 mg tablet 2.5 mg PO DAILY 04/20/22 04/20/22 History carbidopa 25 mg-levodopa 100 mg See Rx Instructions .ROUTE .COMPLEX 04/20/22 04/21/22 History tablet (Sinemet) docusate sodium 100 mg tablet 100 mg PO BID 04/20/22 04/20/22 History levodopa 42 mg capsule with 84 mg INHALATION .5XSDAY PRN 04/20/22 04/20/22 History inhalation device (Inbrija) magnesium hydroxide 400 mg/5 mL 30 ml PO DAILY PRN 04/20/22 04/20/22 History oral suspension (Milk of Magnesia) pravastatin 10 mg tablet 10 mg PO HS 04/20/22 04/20/22 History quetiapine 25 mg tablet 12.5 mg PO HS 04/20/22 04/20/22 History sennosides 8.6 mg-docusate sodium 1 tab-cap PO DAILY PRN 04/20/22 04/20/22 History 50 mg tablet (Senokot-S) sodium chloride 0.9 % (flush) 10 ml IV BID 04/20/22 04/20/22 History (Normal Saline Flush) sodium phosphates 19 gram-7 133 ml PA DAILY PRN 04/20/22 04/20/22 History gram/118 mL enema (Fleet Enema) amantadine HCl 100 mg tablet 100 mg TID 04/21/22 04/21/22 History aspirin 81 mg tablet,delayed 81 mg DAILY 04/21/22 04/21/22 History release benztropine 0.5 mg tablet 0.5 mg HS 04/21/22 04/21/22 History carbidopa 50 mg-levodopa 200 See Rx Instructions .ROUTE .COMPLEX 04/21/22 04/21/22 History mg-entacapone 200 mg tablet insulin glargine 100 unit/mL (3 See Rx Instructions .ROUTE .COMPLEX 04/21/22 04/21/22 History mL) subcutaneous pen (Lantus Solostar U-100 Insulin) Personal History Living Arrangements: Home (with ) Marital Status: Beliefs That Will Affect Care: None Patient History Medical History Adjustment reaction Benign essential hypertension Hypercholesterolemia Hypocalcemia Male erectile disorder Medicare annual wellness visit, subsequent Orthostatic hypotension Parkinson's disease Peripheral neuropathy Seborrheic dermatitis of scalp Vitamin D deficiency Surgical History H/O lithotripsy History of appendectomy History of tonsillectomy Squamous cell carcinoma of left upper extremity Family History Father Colorectal cancer Lung cancer Brother Heart disease Social History Smoking Status: Never smoker Second Hand Exposure: No; Do You Dip or Chew Tobacco: No; Hx Alcohol Use: No Hx Substance Use: No Preferred Language: Welsh Communication Ability: Unable Communication Ability Comment: unknown Visual Impairment: No Limitations Hearing Ability: Normal Infrastructure Analyst Required: No Beliefs That Will Affect Care: None marital status: Current Living Situation: Spouse Other Information That Helps Us Care for You: No Feels Safe at Home: Yes Safety Concerns: Feels Safe At This Time Childhood Exposure to Second-Hand Smoke: No Seatbelt Use: always Sunscreen Use: Yes Assistive Devices: Glasses and Walker Physical Exam Psychiatric: Orientation: + not alert Apperance: appropriately dressed and appropriately groomed Vital Signs (Past 24 Hours): Last Vital Signs Temp 36.9 C 04/21/22 07:34 Pulse 92 H 04/21/22 07:34 Resp 20 04/21/22 07:34 BP 174/76 H 04/21/22 07:34 Pulse Ox 97 04/21/22 07:34 Review of Systems Unobtainable due to reduced consciousness Results & Data (PSY) Medications Administered Lorazepam 2 mg/ Syringe 2 mls @ 2 mls/min IV Q30M PRN PRN Reason: Agitation Stop: 05/21/22 01:41 Last Admin: 04/21/22 09:48 Dose: 2 mls/min Documented by: [id number] Admin: 04/21/22 07:13 Dose: 2 mls/min Documented by: [id number] Admin: 04/21/22 06:14 Dose: 2 mls/min Documented by: [id number] Admin: 04/21/22 05:28 Dose: 2 mls/min Documented by: [id number] Admin: 04/21/22 04:39 Dose: 2 mls/min Documented by: [id number] Admin: 04/21/22 03:58 Dose: 2 mls/min Documented by: [id number] Sodium Chloride (Nss 1000ml) 1,000 mls @ 80 mls/hr IV .[id number] [facility] Stop: 04/21/22 15:45 Last Admin: 04/21/22 03:58 Dose: 80 mls/hr Documented by: [id number] Insulin Aspart (Insulin Aspart Per Unit) 0 units SC Q6 [facility] Stop: 05/21/22 05:59 Last Admin: 04/21/22 05:33 Dose: Not Given Documented by: [id number] Coding Level of Care Code 43819 Inpt Consult Level 3 Diagnoses Delirium R41.0 Parkinson disease G20 Agitation R45.1
[2022-04-21] MEDS ORDERED: NON-FORMULARY MEDICATION (Entacapone 200 MG) NG SCH (11:45)
[2022-04-21] MEDS ORDERED: CARBIDOPA/LEVODOPA 25/100MG TAB PO SCH (12:00)
--- NOTE | 2022-04-21 12:15 | Neurology Consultation ---
Date of Consultation April 21, 2022 Assessment & Plan (1) Parkinson disease: 1. continue Sinemet 50/200 mg every 3 hours starting at 0600 - midnight 2. continue entacapone 200 mg along with Sinemet every 3 hours starting at 0600 - midnight 3. CR Sinemet has been used PRN 4. continue antibiotics 5. PT/OT once able to be assessed 6. hold Amantadine, Cogentin 7. close observation (2) Delirium: 1. limit the use of ativan and other benzos 2. psychiatry on board for management of agitation Supervising Physician Co-Signing Physician Notes I have seen and discussed above patient with Dr Ada Frias, neurology. PT known to me, seen and examined, discussed with . At baseline rare irritability and generally cognitively intact.Recent replacement of left DBS stimulator the surgical site of which dehisced and became infected. neg blood cultures and site cultures. Battery and leads at parietal cranium removed, intracranial leads left intact. Id involved, pt of Cefepime and Vanc. Daily while at [place] and while at [facility] episodes of escalating agitation. He became combative at [facility] requiring xfer to here with large doses of lorazepam, Haldol and fentanyl. No fever, nml wbc. CT head significant artifact. exam, sedated, following no commands, eyes closed, pupils equal neck supple. R hand rest tremor, moves all fours symmetrically. pulls at NGT Imp hyperactive delirium related to infection, Cefipime hospitizatio, would confer with ID re further antibiotic rec. would resume sinemet/comtan. Hold amantadine and cogentin, most likely to cause delirium. no current clinical evidence of gelatin powder mixer infection, but monitor. Minimize benzodiapine. Will follow with you. MD Chrissy History of Present Illness Reason for Consultation: delirium agitation Requesting Physician: Karla Nunez MD Attending Physician: Karla Nunez MD History of Present Illness Evgeny is a 66 year old male with a PMH- Parkinson's disease s/p bilateral DBS placement (2017), left DBS generator wound infection s/p removal (04/18/22), HTN, HLD, and DM2 presents with a two-day history of episodic agitation and combativeness. The left DBS generator replaced on 03/06/22 (by [facility] neurosurgery); unfortunately, the surgical site became infected, requiring neurosurgical removal of the DBS and washout of the wound two days ago (04/18). He was discharged to [facility] one day ago (04/19). On the drive to [facility] his noted that he had an hour-long episode of agitation/delirium during which he was "saying nasty things he would never say to me" as well as making bizarre/delusional statements (e.g. "this is all a conspiracy against me"). His notes this has never happened before. This agitation/delirium spontaneously resolved prior to arrival to [facility]. His called their neurologist, who recommended discontinuing all Parkinson's meds temporarily to "wash them out". Later that night, he had another episode, and became combative with [facility] staff. She went back to [facility] on 04/20 in the morning, at which time patient had another episode of agitation/delirium, this time lasting 2-3 hours before spontaneously resolving. Between episodes of agitation/delirium. Later in the day on 04/20, he had another episode which was severe enough to prompt presenting to the ER 04/21/22. She feels each episode is more severe and longer in duration than the last. He required three security guards to hold him still; He had a total of 3mg ativan, 5mg zyprexa, 2.5mg haldol, and 225mcg fentanyl before his combativeness resolved. He is sleeping due to sedation. is bed side and confirms medication list. Allergies Allergy/AdvReac Type Severity Reaction Status Date / Time ibuprofen Allergy Unknown Verified 04/20/22 21:17 lisinopril Allergy Unknown Verified 04/20/22 21:17 losartan Allergy Unknown Verified 04/20/22 21:17 pramipexole [From Mirapex] Allergy Unknown Verified 04/21/22 01:33 Home Medications Medication Instructions Recorded Confirmed Type Maxipime Ivpb 2gm=50ml See Rx Instructions .ROUTE .COMPLEX 04/20/22 04/20/22 History Vancocin 1,979wu=[id number] 0 ml IV BID 04/20/22 04/20/22 History amlodipine 2.5 mg tablet 2.5 mg PO DAILY 04/20/22 04/20/22 History carbidopa 25 mg-levodopa 100 mg See Rx Instructions .ROUTE .COMPLEX 04/20/22 04/21/22 History tablet (Sinemet) docusate sodium 100 mg tablet 100 mg PO BID 04/20/22 04/20/22 History levodopa 42 mg capsule with 84 mg INHALATION .5XSDAY PRN 04/20/22 04/20/22 History inhalation device (Inbrija) magnesium hydroxide 400 mg/5 mL 30 ml PO DAILY PRN 04/20/22 04/20/22 History oral suspension (Milk of Magnesia) pravastatin 10 mg tablet 10 mg PO HS 04/20/22 04/20/22 History quetiapine 25 mg tablet 12.5 mg PO HS 04/20/22 04/20/22 History sennosides 8.6 mg-docusate sodium 1 tab-cap PO DAILY PRN 04/20/22 04/20/22 History 50 mg tablet (Senokot-S) sodium chloride 0.9 % (flush) 10 ml IV BID 04/20/22 04/20/22 History (Normal Saline Flush) sodium phosphates 19 gram-7 133 ml HI DAILY PRN 04/20/22 04/20/22 History gram/118 mL enema (Fleet Enema) amantadine HCl 100 mg tablet 100 mg TID 04/21/22 04/21/22 History aspirin 81 mg tablet,delayed 81 mg DAILY 04/21/22 04/21/22 History release benztropine 0.5 mg tablet 0.5 mg HS 04/21/22 04/21/22 History carbidopa 50 mg-levodopa 200 See Rx Instructions .ROUTE .COMPLEX 04/21/22 04/21/22 History mg-entacapone 200 mg tablet insulin glargine 100 unit/mL (3 See Rx Instructions .ROUTE .COMPLEX 04/21/22 04/21/22 History mL) subcutaneous pen (Lantus Solostar U-100 Insulin) Patient History Medical History Adjustment reaction Benign essential hypertension Hypercholesterolemia Hypocalcemia Male erectile disorder Medicare annual wellness visit, subsequent Orthostatic hypotension Parkinson's disease Peripheral neuropathy Seborrheic dermatitis of scalp Vitamin D deficiency Surgical History H/O lithotripsy History of appendectomy History of tonsillectomy Squamous cell carcinoma of left upper extremity Family History Father Colorectal cancer Lung cancer Brother Heart disease Social History Smoking Status: Never smoker Second Hand Exposure: No; Do You Dip or Chew Tobacco: No; Hx Alcohol Use: No Hx Substance Use: No Preferred Language: Portuguese Communication Ability: Unable Communication Ability Comment: unknown Visual Impairment: No Limitations Hearing Ability: Normal Shift Leader Required: No Beliefs That Will Affect Care: None marital status: Current Living Situation: Spouse Other Information That Helps Us Care for You: No Feels Safe at Home: Yes Safety Concerns: Feels Safe At This Time Childhood Exposure to Second-Hand Smoke: No Seatbelt Use: always Sunscreen Use: Yes Assistive Devices: Walker Review of Systems Review of Systems: Unobtainable due to cognitive status Physical Exam Physical Exam: Physical Exam: Constitutional: appearance ill appearing, neck supple Ears, Nose, Mouth and Throat: mucous membranes moist, no injection and skin normal, eyes normal Cardiovascular: normal S-1 and S-2 and regular rate and rhythm Respiratory: course breath sounds Musculoskeletal: no peripheral edema Skin: sutures left parietal area of head, sutures left chest wall. Eyes: unable to assess NEUROLOGIC EXAMINATION: Mental status: sedated sleeping Cranial Nerves facial symmetry Reflexes: decreased reflexes throughout up going toes bilaterally Sensory: reacts to light touch, no cogwheeling bilaterally Gait/Stance: Posture lying in bed Strength: unable to assess Results & Data (MN) Vital Signs (Past 12 Hours) Vital Signs Temp Pulse Pulse Resp BP Pulse Ox 04/21/22 11:34 36.6 C 95 H 18 146/90 H 97 04/21/22 08:00 94 H 04/21/22 07:34 36.9 C 92 H 20 174/76 H 97 04/21/22 03:30 110 H 04/21/22 03:16 37 C 94 H 18 184/109 H 98 04/21/22 01:00 37.5 C 74 18 138/78 100 Laboratory Results Abnormal lab results 04/20/22 04/20/22 04/20/22 Range/Units 21:15 21:47 22:25 Neut # (Auto) (1.4-6.5) K/uL Lymph # (Auto) (1.2-3.4) K/uL [place] # (Auto) (0.11-0.59) K/uL Chloride 108 H (98-107) mmol/L Glucose 196 H (70-99(Fasting)) mg/dl POC Glucose 165 H (70-99) mg/dl Lactate 2.3 H* (0.4-2.0) mmol/L Calcium (8.5-10.1) mg/dl ALT 5 L (7-52) U/L Troponin I High Sens 266.3 H* (0-20) pg/ml 04/20/22 04/21/22 04/21/22 Range/Units 22:25 01:09 05:31 Neut # (Auto) 6.81 H (1.4-6.5) K/uL Lymph # (Auto) 0.92 L (1.2-3.4) K/uL [place] # (Auto) 1.02 H (0.11-0.59) K/uL Chloride (98-107) mmol/L Glucose (70-99(Fasting)) mg/dl POC Glucose 160 H (70-99) mg/dl Lactate (0.4-2.0) mmol/L Calcium (8.5-10.1) mg/dl ALT (7-52) U/L Troponin I High Sens 276.0 H* (0-20) pg/ml 04/21/22 04/21/22 04/21/22 Range/Units 06:02 07:33 12:43 Neut # (Auto) (1.4-6.5) K/uL Lymph # (Auto) 0.94 L (1.2-3.4) K/uL [place] # (Auto) 1.01 H (0.11-0.59) K/uL Chloride (98-107) mmol/L Glucose 133 H (70-99(Fasting)) mg/dl POC Glucose 148 H (70-99) mg/dl Lactate (0.4-2.0) mmol/L Calcium 8.1 L (8.5-10.1) mg/dl ALT (7-52) U/L Troponin I High Sens 232.8 H* (0-20) pg/ml Diagnostic Findings CT head-. Limited study as above. No acute intracranial abnormality identified. Chronic appearing right cerebellar lacunar infarct. Neurostimulator device electrodes overlie the bilateral thalami.
--- NOTE | 2022-04-21 12:24 | XRay Report ---
XR chest 1V portable HISTORY: 66 years-old Male ng placement status post placement of an enteric tube COMPARISON: Chest radiograph 04/20/2022 TECHNIQUE: Portable AP view of the chest FINDINGS: The cardiac silhouette is mildly enlarged. Interval removal of the left-sided PICC. Enteric tube is p resent with distal tip projected superiorly which appears to extend outside the [id number]. No pne umothorax, pleural effusion, airspace consolidation or overt pulmonary edema. Right chest wall batter y pack is noted with electrodes projected superiorly along the right neck. Degenerative changes of th e shoulders and spine. Moderate fecal retention. IMPRESSION: Enteric tube coils within the distal esophagus with distal tip projected superiorly withi n the neck. Repositioning with follow-up imaging is needed. ACT 112: Negative or not required by law. The above report was generated using voice recognition software. It may contain grammatical, syntax o r spelling errors. Electronically signed by: Chino Solis M.D. 04/21/2022 12:22 PM
--- NOTE | 2022-04-21 13:43 | XRay Report ---
XR chest 1V portable CLINICAL HISTORY: NG tube placement confirmation TECHNIQUE: Single frontal radiograph of the chest was obtained. Comparison: Comparison is made to chest radiographs 04/21/2022 FINDINGS: The enteric tube is looped with the side-port terminating in the neck. Stable appearance of battery-p owered device in the right chest. The cardiomediastinal silhouette is normal. The lungs are clear. No evidence of pleural effusion or pneumothorax. IMPRESSION: Enteric tube is looped in the esophagus and should be repositioned. ACT 112: Negative or not required by law. Electronically signed by: Rebel Wright M.D. 04/21/2022 1:42 PM
[2022-04-21] MEDS ORDERED: LIDOCAINE 2% JELLY 5 ML TUBE EXT ONE (14:08)
[2022-04-21] MEDS: LIDOCAINE VISCOUS 2% 15 ML UDC TOP ONE ×2 (15:04→16:32)
--- NOTE | 2022-04-21 16:35 | XRay Report ---
XR chest 1V portable CLINICAL HISTORY: NG placement confirmation TECHNIQUE: Single frontal radiograph of the chest was obtained. Comparison: Comparison is made to chest radiographs 08/22/2022 FINDINGS: The enteric tube has been replaced, the side port and tip lie below the diaphragm likely within the s tomach. IMPRESSION: Satisfactory position of enteric tube. ACT 112: Negative or not required by law. Electronically signed by: Rebel Wright M.D. 04/21/2022 4:34 PM
--- NOTE | 2022-04-21 16:43 | XRay Report ---
XR KUB/Abdomen 1 view CLINICAL HISTORY: concern of constipation, mental status change TECHNIQUE: 1 view of the abdomen was obtained. Comparison: None available at the time of this dictation. FINDINGS: Again noted is satisfactory position of the enteric tube. The osseous structures are grossly unremark able. No obstructive bowel gas is seen. A large stool burden is seen. No evidence of impaction is see n in the pelvis. IMPRESSION: Large stool burden is seen compatible with constipation. No evidence of impaction. ACT 112: Negative or not required by law. Electronically signed by: Rebel Wright M.D. 04/21/2022 4:41 PM
[2022-04-21] MEDS: CARBIDOPA/LEVODOPA 25/100MG EXT REL TAB PO SCH (16:48)
[2022-04-21] MEDS: ENTACAPONE 200 MG TAB PO SCH ×3 (16:49→20:37)
[2022-04-21] MEDS: CARBIDOPA/LEVODOPA 25/100MG TAB PO SCH ×3 (16:49→20:39)
[2022-04-21] MEDS ORDERED: METOPROLOL TARTRATE 1 MG/ML VIAL IV PRN (18:41)
[2022-04-21] MEDS: VANCOMYCIN HCL 1,250 MG in SODIUM CHLORIDE 0.9% 250 ML IV SCH (20:36)
[2022-04-21] MEDS: QUEtiapine FUMARATE 25 MG TABLET PO PRN (20:36)
[2022-04-22] MEDS: INSULIN ASPART PER UNIT SC SCH ×5 (00:08→21:45)
[2022-04-22] MEDS: CARBIDOPA/LEVODOPA 25/100MG TAB PO SCH ×7 (02:33→20:26)
[2022-04-22] MEDS: ENTACAPONE 200 MG TAB PO SCH ×7 (02:33→20:25)
[2022-04-22] MEDS: CARBIDOPA/LEVODOPA 25/100MG EXT REL TAB PO SCH ×2 (02:43→12:48)
[2022-04-22] MEDS ORDERED: CARBIDOPA/LEVODOPA 25/100MG TAB PO SCH (03:00)
[2022-04-22] MEDS ORDERED: CARBIDOPA/LEVODOPA 25/100MG EXT REL TAB PO SCH (03:00)
[2022-04-22] MEDS: cefTRIAXone SODIUM 2,000 MG in DEXTROSE 5% 50 ML IV SCH (05:36)
--- NOTE | 2022-04-22 07:08 | XRay Report ---
XR KUB/Abdomen 1 view CLINICAL HISTORY: verify NG tube placement TECHNIQUE: 1 view of the abdomen was obtained. Comparison: Comparison is made to chest and abdomen radiographs on 122 FINDINGS: Enteric tube is in satisfactory position, the tip and side-port lie below the diaphragm. The osseous structures are grossly unremarkable. The bowel gas pattern is nonobstructive. Large stool burden is s een without evidence of inspissated stool in the rectum. IMPRESSION: 1. Satisfactory appearance of enteric tube. 2. Large stool burden is again seen. ACT 112: Negative or not required by law. Electronically signed by: Rebel Wright M.D. 04/22/2022 7:07 AM
[2022-04-22 07:50] LABS: Basophils # (auto) 0.01 K/uL (0-0.2); Basophils % (auto) 0.1 %; Eosinophils # (auto) 0.03 K/uL (0-0.5); Eosinophils % (auto) 0.3 %; Hematocrit (blood only) 42.4 % (42-52); Hemoglobin 14.9 g/dL (14.0-18.0); Immature Granulocytes # (auto) 0.02 K/uL (0.00-0.02); Immature Granulocytes % (auto) 0.2 %; Lymphocytes # (auto) 0.74 K/uL (1.2-3.4); Mean Corpuscular Hgb Conc 35.1 g/dL (32-36); Mean Platelet Volume 9.5 fL (7.4-10.4); Monocytes % (auto) 12.4 %; Neutrophils # (auto) 8.41 K/uL (1.4-6.5); Platelet Count 213 K/uL (130-400); RDW Coefficient of Variation 12.9 % (11.5-14.5); RDW Standard Deviation 42.8 fL (36.4-46.3); Red Blood Count 4.66 M/uL (4.7-6.1); White Blood Count 10.51 K/uL (4.8-10.8)
[2022-04-22 08:01] LABS: Albumin Globulin Ratio 1.3 (0.9-2); Albumin Level 3.9 gm/dl (3.4-5.0); Bilirubin,Total 0.7 mg/dl (0.2-1.0); Calcium 8.3 mg/dl (8.5-10.1); Creatinine Clr Calc Pharmacy 76.9 ml/min; Est GFR (African American) 104.2 ml/min; Est GFR (Non-African American) 89.9 ml/min; Potassium 3.7 mmol/L (3.5-5.1); Total Protein 6.9 gm/dl (6.0-8.3)
--- NOTE | 2022-04-22 08:17 | Hospitalist Progress Note ---
Date of Service April 22, 2022 Assessment & Plan (1) Agitation: Plan: 66yo male with a history of Parkinson's disease s/p bilateral DBS placement (2018), left DBS generator wound infection s/p removal (04/18/22), HTN, HLD, and DM2 presents with a two-day history of episodic agitation and combativeness in the setting of recent left-sided DBS removal and wound washout for surgical site infection. Delirium, agitation, combativeness, Parkinson's disease -Patient with new acute-onset episodic delirium in the setting of recent deep brain stimulation (DBS) line removal due to infection -On admission, mildly tachycardic to 100s, vitals otherwise stable, patient afebrile -In the ED, patient required a total of 3mg Ativan, 5 mg Zyprexa, 2.5mg Haldol, and 225mcg fentanyl before combativeness resolved -No leukocytosis, no electrolyte derangements, LFTs wnl. -Lactate 2.3 on admission, repeat wnl (1.5) -Blood cultures pending, UA + culture pending -EKG: NSR, nonspecific T wave abnormality, no overt ischemic change, QTc not prolonged (437) -CT head: motion artifact but no evidence of acute intracranial abnormality -NG tube placed, as patient unable to tolerate p.o. -Psychiatry consult placed for review of med regimen: -Neurology consult placed: Holding amantadine, benztropine. Otherwise, continue rest of Parkinson's meds per home regimen -Patient awake, alert, and noncombative this morning. Alert and oriented x3 (self, place, and situation) * Sinemet 25-100 mg ER twice daily (1 tablet at noon 1 tablet at 3 AM) * Kqtejlpxv-dbzybupi-rarhwpxxte [id number] mg IR 7XD. Pharmacy only has carbidopa-levodopa combo pill. Entacapone 200 mg ordered non-formulary (pharmacy has limited supply-56). * Seroquel 12.5 mg p.o. twice daily as needed; can titrate up to 25 mg 3 times daily as needed. * IV Ativan 2 mg every 2 hours as needed for agitation if patient has to be n.p.o. or if unable to administer Seroquel via NG tube * IV Haldol 2 mg every 4 hours as needed for behavioral emergency Left DBS line infection (s/p post removal) * IV vancomycin (through 05/02/22), IV ceftriaxone (through 05/02/2022) * Trend CBC, BMP GI dysmotility -Stool burden seen on KUB x-ray. No evidence of inspissated stool in the rectum. Nonobstructive bowel gas pattern -Following initiation of bowel regimen, nursing reports some bowel movement, albeit hard and small * MiraLAX, senna * Resumed home Fleet enema suppository; as needed milk of magnesia, Colace 100 mg daily Elevated troponin-downtrending -On admission, hsTroponin elevated to 266, repeat 276. Currently 236. -Patient without chest pain (per patient's ), no overt ischemic change on EKG * No further work-up indicated DM2 -HbA1c 8.2% (03/27/22) -Patient's home regimen held on admission * Continue BSG checks, sliding-scale insulin, hypoglycemic protocol HTN: BP well-controlled at this time; holding home amlodipine (2.5mg PO qd) for now HLD: resumed home pravastatin 10 mg nightly FEN: Carb consistent diet (easy to chew) Code status: DNR/DNI DVT ppx: SCDs PT/OT: Ordered: Awaiting eval Case management: consulted regarding difficulty managing at home (e.g. may need a stair lift) Dispo: PCU (2) Delirium: (3) Diabetes mellitus, insulin dependent (IDDM), uncontrolled: (4) Hypertension: (5) Hypercholesterolemia: (6) Parkinson disease: (7) Wound infection: Admission and Anticipated Discharge Date Admission Date: April 21, 2022 Supervising Physician Co-Signing Physician Notes Resident Physician Supervision Note: I independently interviewed and examined the patient and verified the beck history and physical, reviewed labs and image studies and agree with resident Dr. Low findings and care plan. Results & Data Results & Data ([facility]) Vital Signs (Past 12 Hours) Vital Signs Temp Pulse Pulse Resp BP Pulse Ox 04/22/22 08:03 36.9 C 96 H 19 119/70 97 04/22/22 03:36 37.2 C 106 H 18 138/78 96 04/21/22 23:14 36.9 C 104 H 18 140/80 96 04/21/22 22:18 101 H Resident Activity Tracking Resident Involvement: Resident Care Provided Care Provided: Adult Hospital Medicine (1) Hypertension Hypertension type: unspecified Qualified Code(s): I10 - Essential (primary) hypertension
[2022-04-22] MEDS: VANCOMYCIN HCL 1,250 MG in SODIUM CHLORIDE 0.9% 250 ML IV SCH (09:16)
--- NOTE | 2022-04-22 09:41 | Pharmacy Report ---
Pharmacy Vanc AUC Short Note - Date of Service April 22, 2022 - Assessment & Plan Assessment 66yo male presenting from [facility] with a history of Parkinson's disease s/p bilateral DBS placement (2018), left DBS generator wound infection s/p removal and wound washout (04/18/22). Per H&P the patient was previously on cefepime + vancomycin with plans to continue through 05/02/22. Neurologist recommended to change cefepime to ceftriaxone. [facility] dosing: vanc 1250mg IV q12h, 1[place]12[place] [facility] [place] Vancomycin * AUC/PATRICIA is the preferred PK/PD target for vancomycin. AUC guided dosing is effective and associated with decreased risk of nephrotoxicity compared to tra ditional trough targets * Random level 04/21 @ 1725 - 12.5mcg/mL (non-steady state 13.5hr level). 1250mg IV q12h regimen correlates with trough of 24.8mg/mL and AUC of 770 which is supratherapeutic. * Change dose to 1250mg IV q18h - expected to achieve a trough level of 15.2 mcg/mL and target AUC/PATRICIA of 400-600 mg/L.hr, may be associated with a 10 % risk of nephrotoxicity * Random ordered for 04/24 w/ AM labs Pharmacy will continue to follow and will adjust dose/frequency as necessary. Thank you.
--- NOTE | 2022-04-22 12:11 | Progress Notes ---
DATE OF SERVICE: 04/22/2022 SUBJECTIVE: I am seeing the patient in followup. He has had DBS bilaterally for Parkinson's disease and he had a battery replaced with the battery infection as well as removal of the scalp lead. He b ecame delirious, which is probably multifactorial. The patient denies any headache. OBJECTIVE: Today, he is much more awake and alert, still mildly sleepy, oriented to person and year. He thinks he is at [place]. Follows some simple commands, gives me some history about his neurolog ist. There is some minor facial asymmetry, which is likely baseline for him with the left nasolabial fold being mildly flatter than the right, but the palpebral fissures of the same. He moves the uppe r and lower extremities symmetrically. There is some resting tremor. No significant rigidity in the lowers. Neck is supple. IMPRESSION AND PLAN: Delirium, polyfactorial, related to infections, possibly antibiotic, anticholin ergic including amantadine and Cogentin. Continue levodopa/carbidopa. Minimize the use of benzodiaz epines. We will follow with you. Job ID: [id number]
[2022-04-22] MEDS: POLYETHYLENE (MIRALAX) 17 GM PACK PO SCH ×2 (12:42→20:30)
[2022-04-22] MEDS: QUEtiapine FUMARATE 25 MG TABLET PO PRN (13:07)
[2022-04-22] MEDS: SENNA 8.6 MG TAB PO SCH (13:07)
[2022-04-22 14:53] LABS: Appearance Urine Cloudy (Clear); Bacteria Urine Automated Negative (Negative); Bilirubin Urine Negative (Negative); Blood Urine Negative (Negative); Color Urine Dark Yellow; Epithelial Cell Urine Auto >30 /lpf (0-5); Glucose Urine UA 3+ (Negative); Ketones Urine 3+ (Negative); Leukocyte Esterase Urine Trace (Negative); Nitrite Urine Positive (Negative); Protein Urine 1+ (Negative); Specific Gravity Urine 1.029 (1.000-1.030); Urobilinogen Urine Negative (Negative)
[2022-04-22] MEDS ORDERED: SOD PHOSPHATE/SOD BIPHOSPHATE ENEMA 132 ML BTL PR PRN (16:59)
[2022-04-22] MEDS ORDERED: MAGNESIUM HYDROXIDE SUSP 30 ML UDC PO PRN (17:01)
[2022-04-22] MEDS: DOCUSATE SODIUM 100 MG CAP PO SCH (20:29)
[2022-04-22] MEDS ORDERED: LORazepam 2 MG/1 ML VIAL ONE (21:21)
[2022-04-22] MEDS: LORazepam 2 MG in SYRINGE 1 ML IV PRN (21:27)
[2022-04-22] MEDS ORDERED: HALOPERIDOL LACTATE 5 MG/ML 1 ML VIAL IV STA (21:30)
[2022-04-22] MEDS ORDERED: HALOPERIDOL LACTATE 5 MG/ML 1 ML VIAL ONE (21:33)
--- NOTE | 2022-04-22 21:34 | Communication Note ---
Date of Service: April 22, 2022 Code liv was called for agitation. 5 nurses at bedside. PO seroquel unable to be administered. 2mg IV ativan administered w/o improvement. Ordering 2mg IM H aldol (floor will not administer IV Haldol). update: above medications w/ good relief of symptoms Patient received 12.5mg PO Seroquel at around midnight. It worked well. At 530am, messaged by nursing about starting to have increased agitation. Ordering now dose of 12.5mg PO Seroquel. Edit: patient spit out the Seroquel in apple sauce. Nursing administered the prn IV ativan 2mg. One time prn dose of Haldol ordered as patient is starting to have increased agitation.
[2022-04-22] MEDS: HALOPERIDOL LACTATE 5 MG/ML 1 ML VIAL IM STA ×2 (21:36)
[2022-04-23] MEDS: QUEtiapine FUMARATE 25 MG TABLET PO PRN ×3 (00:18→07:16)
[2022-04-23] MEDS: CARBIDOPA/LEVODOPA 25/100MG TAB PO SCH ×9 (00:23→23:33)
[2022-04-23] MEDS: ENTACAPONE 200 MG TAB PO SCH ×9 (00:23→23:32)
[2022-04-23] MEDS: VANCOMYCIN HCL 1,250 MG in SODIUM CHLORIDE 0.9% 250 ML IV SCH ×2 (02:37→20:57)
[2022-04-23] MEDS: CARBIDOPA/LEVODOPA 25/100MG EXT REL TAB PO SCH (02:44)
[2022-04-23] MEDS ORDERED: QUEtiapine FUMARATE 25 MG TABLET PO ONE (05:33)
[2022-04-23] MEDS: LORazepam 2 MG in SYRINGE 1 ML IV PRN ×4 (05:35→21:49)
[2022-04-23] MEDS ORDERED: HALOPERIDOL LACTATE 5 MG/ML 1 ML VIAL IM PRN (05:46)
[2022-04-23] MEDS ORDERED: HALOPERIDOL LACTATE 5 MG/ML 1 ML VIAL ONE (06:02)
[2022-04-23] MEDS: cefTRIAXone SODIUM 2,000 MG in DEXTROSE 5% 50 ML IV SCH (06:40)
[2022-04-23] MEDS ORDERED: Nursing to Pharmacy Communication SCH (07:15)
[2022-04-23] MEDS: INSULIN ASPART PER UNIT SC SCH ×5 (07:25→20:47)
--- NOTE | 2022-04-23 07:54 | Hospitalist Progress Note ---
Date of Service April 23, 2022 Assessment & Plan (1) Agitation: Plan: 66yo male with a history of Parkinson's disease s/p bilateral DBS placement (2018), left DBS generator wound infection s/p removal (04/18/22), HTN, HLD, and DM2 presents with a two-day history of episodic agitation and combativeness in the setting of recent left-sided DBS removal and wound washout for surgical site infection. Delirium, agitation, combativeness, Parkinson's disease -Patient with new acute-onset episodic delirium in the setting of recent deep brain stimulation (DBS) line removal due to infection -On admission, mildly tachycardic to 100s, vitals otherwise stable, patient afebrile -In the ED, patient required a total of 3mg Ativan, 5 mg Zyprexa, 2.5mg Haldol, and 225mcg fentanyl before combativeness resolved -No leukocytosis, no electrolyte derangements, LFTs wnl. -Lactate 2.3 on admission, repeat wnl (1.5) -Blood cultures pending, UA + culture pending -EKG: NSR, nonspecific T wave abnormality, no overt ischemic change, QTc not prolonged (437) -CT head: motion artifact but no evidence of acute intracranial abnormality -NG tube placed, as patient unable to tolerate p.o. -Psychiatry consult placed for review of med regimen. * Following second episode of agitation yesterday, as needed Haldol, Seroquel discontinued in favor of Zyprexa d/t difficulty with delivery. * Zyprexa SL scheduled with IM prn as back up. * Could consider clonidine to avoid EPS * IV Ativan still available for as needed agitation - Ordered zyprexa SL hs scheduled and IM prn - daily EKG -Neurology consult placed: Holding amantadine, benztropine. Otherwise, continue rest of Parkinson's meds per home regimen * Sinemet 25-100 mg ER twice daily (1 tablet at noon 1 tablet at 3 AM) * Jstjgldtr-priezfbz-vsjqphzefd [id number] mg IR 7XD. Pharmacy only has carbidopa-levodopa combo pill. Entacapone 200 mg ordered non-formulary (pharmacy has limited supply-56). Left DBS line infection (s/p post removal) * IV vancomycin (through 05/02/22), IV ceftriaxone (through 05/02/2022) * Trend CBC, BMP GI dysmotility -Stool burden seen on KUB x-ray. No evidence of inspissated stool in the rectum. Nonobstructive bowel gas pattern -Following initiation of bowel regimen, nursing reports some bowel movement, albeit hard and small * MiraLAX 34 g twice daily scheduled; Senokot 8.6 mg every morning scheduled * Resumed home Fleet enema suppository; as needed milk of magnesia, Colace 100 mg daily Elevated troponin-downtrending -On admission, hsTroponin elevated to 266, repeat 276. Currently 236. -Patient without chest pain (per patient's ), no overt ischemic change on EKG * No further work-up indicated DM2 -HbA1c 8.2% (03/27/22) -Patient's home regimen held on admission * Continue BSG checks, sliding-scale insulin, hypoglycemic protocol HTN: BP well-controlled at this time; holding home amlodipine (2.5mg PO qd) for now HLD: resumed home pravastatin 10 mg nightly FEN: Carb consistent diet (easy to chew) Code status: DNR/DNI DVT ppx: SCDs PT/OT: Ordered: Awaiting eval Case management: consulted regarding difficulty managing at home (e.g. may need a stair lift) Dispo: PCU (2) Delirium: (3) Diabetes mellitus, insulin dependent (IDDM), uncontrolled: (4) Hypertension: (5) Hypercholesterolemia: (6) Parkinson disease: (7) Wound infection: Admission and Anticipated Discharge Date Admission Date: April 21, 2022 Supervising Physician Co-Signing Physician Notes Resident Physician Supervision Note: I independently interviewed and examined the patient and verified the beck history and physical, reviewed labs and image studies and agree with resident Dr. Low findings and care plan. Subjective Overnight, patient became agitated at approximately 930. Digna peck called. He received 2 mg IV Ativan (unable to administer Seroquel p.o.). He then received Seroquel at midnight, again for agitation. IV Haldol was ordered, but not administered. Review of Systems Review of Systems: All systems reviewed & are unremarkable except as noted in HPI & below Physical Exam Physical Exam: General: Thin, snoring man in no acute distress. HEENT: Normocephalic, atraumatic. EOM intact. Good conjugate gaze. Nares patent. Moist mucosal membranes. Neck: Supple. No lymphadenopathy. Normal ROM. CV: Regular rate and rhythm. Normal S1 and S2. No murmurs gallops or rubs. No pedal edema. Respiratory: Mild bibasilar crackles. No rhonchi, or wheezes. Abdomen: Soft, nondistended abdomen. No bruits heard on auscultation. No tenderness to deep palpation. No guarding or rebound. Skin: Intact, without rashes, lesions, or erythema. Results & Data Results & Data ([facility]) Vital Signs (Past 12 Hours) Vital Signs Temp Pulse Pulse Resp BP BP Pulse Ox 04/23/22 07:03 37.0 C 103 H 20 181/82 H 97 04/23/22 04:50 100 H 04/23/22 03:17 36.9 C 92 H 18 142/75 H 97 04/22/22 22:56 37.0 C 104 H 18 110/65 95 Resident Activity Tracking Resident Involvement: Resident Care Provided Care Provided: Adult Hospital Medicine (1) Hypertension Hypertension type: unspecified Qualified Code(s): I10 - Essential (primary) hypertension
[2022-04-23] MEDS ORDERED: LIDOCAINE VISCOUS 2% 15 ML UDC TOP ONE (08:51)
[2022-04-23] MEDS ORDERED: OLANZapine 10 MG/2.1 ML SDV IM SCH (10:00)
[2022-04-23 10:37] LABS: Creatinine Clr Calc Pharmacy 86.9 ml/min; Est GFR (African American) 109.6 ml/min; Est GFR (Non-African American) 94.6 ml/min
--- NOTE | 2022-04-23 10:48 | Progress Notes ---
DATE OF SERVICE: 04/23/2022 I am seeing Mr. Savage in followup of agitation and delirium post-infection. He had a good day yes terday, but last evening, became very agitated and combative, required multiple medications. This morning, he is more sedated. I saw him in the process of getting an NG tube. He is mildly agit ated, moving all 4 extremities symmetrically. No lower extremity rigidity. There is a modest right hand resting tremor. His neck is supple. His chest wound looks unremarkable. He alerts to voice, b ut his speech is incomprehensible consistent with his level of consciousness. IMPRESSION: Parkinson's disease with delirium, polyfactorial. The patient appears to be worse in th e evening, but appeared better yesterday. Defer to psychiatry regarding ongoing medications and whet her or not there is a non p.o. form that he can take regularly to help to prevent the nocturnal wning. In general, I do not see anything focal on exam. He has not had a fever. I will continue to monitor with you. Job ID: [id number]
--- NOTE | 2022-04-23 10:48 | XRay Report ---
KUB CLINICAL HISTORY: NGT placement confirmation COMPARISON STUDY: KUB April 22, 2022. FINDINGS: Tip of nasogastric tube is within the gastric fundus. Large amount of stool within visualiz ed portions of the colon is noted. Right-sided stimulator device is partially imaged. IMPRESSION: Tip of nasogastric tube within the gastric fundus. ACT 112: Negative or not required by law. Electronically signed by: Aditya Long M.D. 04/23/2022 10:47 AM
[2022-04-23] MEDS: POLYETHYLENE (MIRALAX) 17 GM PACK PO SCH ×2 (10:53→20:25)
[2022-04-23] MEDS: SENNA 8.6 MG TAB PO SCH (10:54)
[2022-04-23] MEDS: DOCUSATE SODIUM 100 MG CAP PO SCH ×2 (10:54→20:24)
--- NOTE | 2022-04-23 10:57 | Psychiatric Progress Note ---
Date of Service April 23, 2022 Impression / Recommendations Impression 66 yo man with Parkinson's disease presenting with worsening agitation following infection and surgery r/t DBS now with worsening agitation likely hyperactive/agitated delirium. (1) Delirium: (2) Parkinson disease: (3) Agitation: PO Seroquel cannot be administered consistently and would be better to attempt an agent that can be given PO/IM, will need to monitor response to Ativan IV to ensure no disinhibition patient doesn't have issues with blood sugar/diabetes so Dr. Nunez to consider zyprexa zydis 2.5 hs or regular per NG with IM as back up for prn agitation. BP and P elevation likely agitation this am, that said, clonidine patch could also be an option to assist with restlessness and limit psychotropic exposure Interval History Identifying Information 66 yo man with history of Parkinson's disease admitted medically following DBS removal d/t infection and subsequent worsening agitation. Psychiatry consulted 04/21/22 for medication recommendations. Chief Complaint agitation earlier this am Review of Systems Notes patient is unable to provide. Subjective Subjective Interval progress reviewed. Patient initially seen by Dr. Vallejo who recommended low dose Seroquel, ongoing use of Ativan prn given risk of antipsychotics worsening Parkinson's and low dose Haldol as can also be adminitered IV. Patient had a better day yesterday as was out of wrist restraints and didn't escalate until earlier this am (5 am-6 am, won't take PO Seroquel, required 2 dose of Haldol). Patient gets confused and tries to get out of bed and confused re: NG tube which had to be replaced. NG for meds and not aspiration. Is also followed by Neuro. Physical Exam Psychiatric confused, speech unintelligible, soft wrist restraints Vital Signs (Past 24 Hours) Last Vital Signs Temp 37.0 C 04/23/22 07:03 Pulse 103 H 04/23/22 07:03 Resp 20 04/23/22 07:03 BP 181/82 H 04/23/22 07:03 Pulse Ox 97 04/23/22 07:03 Results & Data ([facility] [place]) Laboratory Results Laboratory Results - last 24 hr 04/22/22 04/22/22 04/22/22 12:25 14:30 16:30 Creatinine Est Cr Clr Drug Dosing Est GFR ( Amer) Est GFR (Non-Af Amer) POC Glucose 197 H 172 H Urine Color Dark Yellow Urine Appearance Cloudy A Urine pH 6.0 Ur Specific Mackay 1.029 Urine Protein 1+ H Urine Glucose (UA) 3+ H Urine Ketones 3+ H Urine Blood Negative Urine Nitrite Positive A Urine Bilirubin Negative Urine Urobilinogen Negative Ur Leukocyte Esterase Trace H Urine WBC (Auto) 1-5 Urine RBC (Auto) 5-10 H U Hyaline Cast (Auto) 10-30 H U Epithel Cells (Auto) >30 H Urine Bacteria (Auto) Negative 04/22/22 04/23/22 04/23/22 20:39 07:33 10:04 Creatinine 0.77 Est Cr Clr Drug Dosing 86.9 Est GFR ( Amer) 109.6 Est GFR (Non-Af Amer) 94.6 POC Glucose 195 H 211 H Urine Color Urine Appearance Urine pH Ur Specific Mackay Urine Protein Urine Glucose (UA) Urine Ketones Urine Blood Urine Nitrite Urine Bilirubin Urine Urobilinogen Ur Leukocyte Esterase Urine WBC (Auto) Urine RBC (Auto) U Hyaline Cast (Auto) U Epithel Cells (Auto) Urine Bacteria (Auto) Current Inpatient Medications Current Inpatient Medications: Current Inpatient Medications Carbidopa/Levodopa (Carbidopa/Levodopa 25/100mg Tab) 2 tab PO 0600,0900,1200,1500,1800,2100 [facility] Stop: 05/21/22 14:59 Last Admin: 04/23/22 10:54 Dose: 2 tab Documented by: Carbidopa/Levodopa (Carbidopa/Levodopa 25/100mg Ext Rel Tab) 1 tab PO BID@0300,1200 [facility] Stop: 05/21/22 11:59 Last Admin: 04/23/22 02:44 Dose: 1 tab Documented by: Carbidopa/Levodopa (Carbidopa/Levodopa 25/100mg Tab) 2 tab PO 0000 [facility] Stop: 05/22/22 00:00 Last Admin: 04/23/22 00:23 Dose: 2 tab Documented by: Dextrose (Dextrose 50% 50 Ml Syringe) 25 - 50 ml IV UD PRN; Protocol PRN Reason: Hypoglycemia Protocol Stop: 05/21/22 02:49 Docusate Sodium (Docusate Sodium 100 Mg Cap) 100 mg PO BID [facility] Stop: 05/22/22 20:59 Last Admin: 04/23/22 10:54 Dose: Not Given Documented by: Entacapone (Entacapone 200 Mg Tab) 200 mg PO 0600,0900,1200,1500,1800,2100 [facility] Stop: 05/21/22 14:59 Last Admin: 04/23/22 10:53 Dose: 200 mg Documented by: Entacapone (Entacapone 200 Mg Tab) 200 mg PO 0000 [facility] Stop: 05/22/22 00:00 Last Admin: 04/23/22 00:23 Dose: 200 mg Documented by: Glucagon (Glucagon For Inj 1 Mg Vial) 1 mg SQ UD PRN; Protocol PRN Reason: Hypoglycemia Protocol Stop: 05/21/22 02:49 Glucose (Glucose 10 Tabs/Tube) 4 - 8 tabs PO UD PRN; Protocol PRN Reason: Hypoglycemia Protocol Stop: 05/21/22 02:49 Glucose (Glucose 40% Gel 15 Gm Tube) 15 - 30 gm PO UD PRN; Protocol PRN Reason: Hypoglycemia Protocol Stop: 05/21/22 02:49 Ceftriaxone Sodium 2,000 mg/ (Dextrose) 70 mls @ 100 mls/hr IV Q24H [facility]; Protocol Stop: 04/29/22 00:00 Last Infusion: 04/23/22 07:26 Dose: Infused Documented by: Lorazepam 2 mg/ Syringe 2 mls @ 2 mls/min IV Q2H PRN PRN Reason: Agitation Stop: 05/21/22 01:41 Last Admin: 04/23/22 07:52 Dose: 2 mls/min Documented by: Vancomycin HCl 1,250 mg/ (Sodium Chloride) 275 mls @ 200 mls/hr IV Q18H [facility] Stop: 05/03/22 02:59 Last Infusion: 04/23/22 04:00 Dose: Infused Documented by: Insulin Aspart (Insulin Aspart Per Unit) 0 units SC ACHS [facility] Stop: 05/23/22 07:29 Last Admin: 04/23/22 08:04 Dose: 2 units Documented by: Magnesium Hydroxide (Magnesium Hydroxide Susp 30 Ml Udc) 30 ml PO Q6H PRN PRN Reason: Constipation Stop: 05/22/22 17:00 Last Admin: 04/23/22 10:53 Dose: 30 ml Documented by: Metoprolol Tartrate (Metoprolol Tartrate 1 Mg/Ml Vial) 5 mg IV Q2H PRN PRN Reason: Tachycardia Stop: 05/21/22 18:40 Miscellaneous (Carbohydrates For Hypoglycemia ) 15 - 30 gm PO UD PRN PRN Reason: Hypoglycemia Protocol Stop: 05/21/22 02:49 Miscellaneous Information (Vancomycin Consult Active) 1 ea N/A UD PRN PRN Reason: Consult Stop: 05/21/22 01:24 Olanzapine (Olanzapine 10 Mg/2.1 Ml Sdv) 2.5 mg IM BID [facility] Stop: 05/23/22 09:59 Last Admin: 04/23/22 10:48 Dose: 2.5 mg Documented by: Polyethylene Glycol (Polyethylene (Miralax) 17 Gm Pack) 17 gm PO BID [facility] Stop: 05/22/22 12:14 Last Admin: 04/23/22 10:53 Dose: 17 gm Documented by: Pravastatin Sodium (Pravastatin Sod 10 Mg Tab) 10 mg PO DAILY@1700 [facility] Stop: 05/23/22 16:59 Sennosides (Senna 8.6 Mg Tab) 8.6 mg PO QAM [facility] Stop: 05/22/22 12:14 Last Admin: 04/23/22 10:54 Dose: 8.6 mg Documented by: Sodium Biphosphate/Sodium Phosphate (Sod Phosphate/Sod Biphosphate Enema 132 Ml Btl) 132 ml VT DAILY PRN PRN Reason: Constipation Stop: 05/22/22 16:58 Last Admin: 04/23/22 10:53 Dose: 132 ml Documented by:
[2022-04-23] MEDS: PRAVASTATIN SOD 10 MG TAB PO SCH (17:27)
[2022-04-23] MEDS: OLANZapine 10 MG/2.1 ML SDV IM PRN (19:08)
[2022-04-23] MEDS: OLANZapine ZYDIS 5 MG ORALLY DIS. TAB PO SCH (22:09)
[2022-04-24] MEDS: CARBIDOPA/LEVODOPA 25/100MG TAB PO SCH ×6 (05:40→19:11)
[2022-04-24] MEDS: ENTACAPONE 200 MG TAB PO SCH ×6 (05:41→19:11)
[2022-04-24] MEDS: cefTRIAXone SODIUM 2,000 MG in DEXTROSE 5% 50 ML IV SCH (06:12)
[2022-04-24] MEDS: INSULIN ASPART PER UNIT SC SCH ×4 (08:06→20:55)
[2022-04-24 08:25] LABS: Creatinine Clr Calc Pharmacy 98.5 ml/min; Est GFR (African American) 115.3 ml/min; Est GFR (Non-African American) 99.5 ml/min
[2022-04-24] MEDS: SENNA 8.6 MG TAB PO SCH (08:58)
[2022-04-24] MEDS: POLYETHYLENE (MIRALAX) 17 GM PACK PO SCH ×2 (08:59→20:55)
[2022-04-24] MEDS: DOCUSATE SODIUM 100 MG CAP PO SCH ×2 (08:59→19:12)
--- NOTE | 2022-04-24 09:20 | Electrocardiogram Report ---
Test Reason : Blood Pressure : / mmHG Vent. Rate : 107 BPM Atrial Rate : 107 BPM P-R Int : 124 ms QRS Dur : 080 ms QT Int : 364 ms P-R-T Axes : 052 045 -11 degrees QTc Int : 485 ms Sinus tachycardia T wave abnormality, consider anterolateral ischemia T wave abnormality, consider inferior ischemia Abnormal ECG When compared with ECG of 21-APR-2022 04:32, No significant change was found Confirmed by Ethan Ponce ([id number]) on 04/24/2022 9:19:46 AM Referred By: REFERRED SELF Confirmed By:Ethan Ponce
--- NOTE | 2022-04-24 10:15 | Pharmacy Report ---
Pharmacy PK ABX Note - Date of Service April 24, 2022 - Assessment and Plan Assessment 66yo male presenting from [facility] with a history of Parkinson's disease s/p bilateral DBS placement (2017), left DBS generator wound infection s/p removal and wound washout (04/18/22). Per H&P the patient was previously on cefepime + vancomycin with plans to continue through 05/02/22. Neurologist recommended to change cefepime to ceftriaxone. The patient was given a one time dose of vancomycin 1750 mg IV (04/21 @ 0358) upon admission to our facility. I contacted [facility] and received the following information in regards to vancomycin dosing: - received 1250 mg IV 04/20 @ 0952 and 1806 - prior to that patient was on 1000 mg IV q12h with trough level of 11.3 mcg/mL (at [facility]) Plan 04/24 * Random level 04/24 9.2 mcg/mL (~9 hr level). Current dosing strategy correlating with trough 5.9 mg/L and AUC 298 mg/L.hr which is subtherapeutic. * Adjust dose to 1250 mg q12H which is predicted to achieve AUC of 446 mg/L.hr and may be associated with 7% risk of nephrotoxicity * Order random 7 AM 04/22 Vancomycin * AUC/PATRICIA is the preferred PK/PD target for vancomycin. AUC guided dosing is effective and associated with decreased risk of nephrotoxicity compared to traditional trough targets * Random level 04/21 @ 1725 - 12.5mcg/mL (non-steady state 13.5hr level). 1250mg IV q12h regimen correlates with trough of 24.8mg/mL and AUC of 770 which is supratherapeutic. * Change dose to 1250mg IV q18h - expected to achieve a trough level of 15.2 mcg/mL and target AUC/PATRICIA of 400-600 mg/L.hr, may be associated with a 10 % risk of nephrotoxicity * Random ordered for 04/24 w/ AM labs Vancomycin * Random level ordered for 04/21 @ 1800 to determine further dosing * Target AUC/PATRICIA of 400-600 mg/L.hr Pharmacy will continue to follow and will adjust dose/frequency as necessary. Thank you. Pharmacy has transitioned to AUC monitoring for vancomycin. AUC/PATRICIA is the preferred PK/PD target and is associated with decreased risk of nephrotoxicity c ompared to traditional trough targets.
[2022-04-24] MEDS: VANCOMYCIN HCL 1,250 MG in SODIUM CHLORIDE 0.9% 250 ML IV SCH (12:37)
--- NOTE | 2022-04-24 13:01 | Progress Notes ---
SUBJECTIVE: I am seeing Mr. Baldwin in followup for the delirium. He had a battery pack replaced on his DBS on the left, and it became infected and was removed. He became gradually over the days agit ated, somewhat suspicious resulting in severe agitation with sundowning and improvement during the da y. Evening before last, he had a very difficult night. His medications were changed and he is getti ng some baseline Zyprexa and Zyprexa as needed. He had a less difficult night only requiring benzodi azepines twice. He has now had a one-on-one sitter. He is sleepy, but arousable, oriented to person . He knows that he is in [place] at the hospital. He follows some simple commands. He indica kemal he has a mild headache. OBJECTIVE: His neck is supple. Pupils are equal. There is no facial asymmetry of significance. Th ere is a more prominent resting tremor on right than left. He elevates his arms symmetrically withou t drift and each leg moves symmetrically. ASSESSMENT: 1. Parkinson's disease, status post resection of DBS battery pack with some of the leads removed as well. No evidence of meningeal process. 2. Ongoing delirium, but I think he had a better night last night than he had. PLAN: I appreciate the assistance of Psychiatry. Amantadine and Cogentin have been discontinued, wh ich was likely helpful to minimize confusion, hallucinations, and delirium. Job ID: [id number]
--- NOTE | 2022-04-24 15:24 | Hospitalist Progress Note ---
Date of Service April 24, 2022 Assessment & Plan (1) Agitation: Plan: 66yo male with a history of Parkinson's disease s/p bilateral DBS placement (2018), left DBS generator wound infection s/p removal (04/18/22), HTN, HLD, and DM2 presents with a two-day history of episodic agitation and combativeness in the setting of recent left-sided DBS removal and wound washout for surgical site infection. Patient typically follows with [facility] neurology as well as recently had a deep brain stimulator washout with removal with [facility] neurosurgery. In the setting of patient's delirium with unknown prognosis we found it appropriate for possible transfer to [facility]. After discussion with [facility]'s transfer team patient was accepted and will be transferred once a bed is available. Discussed case with patient's who agrees with plan. Delirium, agitation, combativeness, Parkinson's disease -Presented with new acute-onset episodic delirium in the setting of recent deep brain stimulation (DBS) line removal due to infection and multiple changes in environment -On admission, mildly tachycardic to 100s, vitals otherwise stable, patient afebrile -In the ED, patient required a total of 3mg Ativan, 5 mg Zyprexa, 2.5mg Haldol, and 225mcg fentanyl before combativeness resolved -No leukocytosis, no electrolyte derangements, LFTs wnl. -Lactate 2.3 on admission, peaked; Blood and UA cultures neg -EKG: NSR, nonspecific T wave abnormality -CT head: motion artifact but no evidence of acute intracranial abnormality -Psychiatry consult: * Following second episode of agitation both Haldol and Seroquel discontinued in favor of Zyprexa d/t difficulty with delivery. * Zyprexa sublingual scheduled, IM dose prn, IV ativan prn (3rd line) * Could consider clonidine to avoid EPS * daily EKG -Neurology consult: Holding amantadine, benztropine. Otherwise, continue Parkinson's meds per home regimen * Sinemet 25-100 mg ER twice daily (1 tablet at noon 1 tablet at 3 AM) * Ousrripjp-tjxftnii-pavwtdxzuk [id number] mg IR 7XD. Pharmacy only has carbidopa-levodopa combo pill. Entacapone 200 mg ordered non-formulary (pharmacy has limited supply-56) -tolerating PO, NG tube removed Left DBS line infection (s/p post removal) * IV vancomycin (through 05/02/22), IV ceftriaxone (through 05/02/2022) * Trend CBC, BMP GI dysmotility -Stool burden seen on KUB x-ray. No evidence of inspissated stool in the rectum. Nonobstructive bowel gas pattern -Following initiation of bowel regimen, nursing reports some bowel movement, albeit hard and small * MiraLAX 34g bid; Senokot 8.6 mg qam * Continue home Fleet enema suppository; as needed milk of magnesia, Colace 100 mg daily Elevated troponin- peaked -peaked 276 -Patient without chest pain (per patient's ), no overt ischemic change on EKG; no further work-up indicated DM2 -HbA1c 8.2% (03/27/22) -Patient's home regimen held on admission -Continue BSG checks, SSI, hypoglycemic protocol HTN: BP well-controlled at this time; holding home amlodipine HLD: cont. home pravastatin FEN: DM2 easy to chew Code status: DNR/DNI DVT ppx: heparin 5000mg q12 sq Dispo: PCU (2) Delirium: (3) Diabetes mellitus, insulin dependent (IDDM), uncontrolled: (4) Hypertension: (5) Hypercholesterolemia: (6) Parkinson disease: (7) Wound infection: Admission and Anticipated Discharge Date Admission Date: April 21, 2022 Supervising Physician Co-Signing Physician Notes I personally examined the patient and verified all beck points of history and exam, discussed case, and agree with decision making with Dr Celis Sitting in bed calm, trying to unlock his phone. No acute complaints. Full HPI and review of systems extremely difficult to ascertain due to his mentation. Vitals noted, in general he is awake fairly disoriented no physical distress. His scalp incision appears to be healing well is stapled, the incision is clean dry and intact there is no surrounding erythema there is no exudate there is no fluctuance. Breathing unlabored no accessory muscle use good effort. Skin shows no rashes no pallor or icterus. Neuro without clearly lateralizing or focal deficits. Altered mental statuswhile I strongly suspect deliriumwith the factors being multiple hospital and rehab facilities in a short period of time, as well as an infection, surgery, etc.it is somewhat difficult to definitively rule out there is not any ongoing deep brain stimulator infection. Set up for transfer for neurosurgery evaluation. Otherwise continue supportive care. Otherwise as above Subjective Patient seen at bedside this morning. 4 point restraints overnight. Around midnight was given prn dose of zyprexa IM and ativan for agitation. Seemed to be doing better this morning. Restraints removed. Review of Systems Review of Systems: Unobtainable due to cognitive status Physical Exam Physical Exam: General: Thin, in no acute distress. HEENT: NC/AT. EOMI. Moist mucosal membranes. Neck: Supple. No lymphadenopathy. Normal ROM. CV: RRR. Normal S1 and S2. No murmurs, gallops, or rubs. No pedal edema. Respiratory: Mild bibasilar crackles. No rhonchi, or wheezes. Abdomen: Soft, nontender, nondistended abdomen. No guarding or rebound. Skin: Incision site with stitches on head show no signs of infection, non erythematous. Psych: Responds to questions but incomprehensible at times. Not AOx3 in setting of delirium. Results & Data Results & Data ([facility]) Vital Signs (Past 12 Hours) Vital Signs Temp Pulse Pulse Resp BP Pulse Ox 04/24/22 15:15 36.6 C 93 H 18 146/83 H 96 04/24/22 11:38 36.6 C 106 H 20 153/76 H 95 04/24/22 08:00 104 H 04/24/22 07:14 37.0 C 101 H 24 137/77 96 04/24/22 03:31 36.9 C 96 H 20 165/79 H 98 Laboratory Results 04/24/22 04/24/22 04/24/22 Range/Units 16:24 11:46 07:09 Creatinine (0.6-1.4) mg/dl Est Cr Clr Drug Dosing ml/min Est GFR ( Amer) ml/min Est GFR (Non-Af Amer) ml/min POC Glucose 162 H 216 H 178 H (70-99) mg/dl Random Vancomycin (10-20) mcg/ml 04/24/22 04/24/22 04/23/22 Range/Units 06:02 06:02 20:43 Creatinine 0.68 (0.6-1.4) mg/dl Est Cr Clr Drug Dosing 98.5 ml/min Est GFR ( Amer) 115.3 ml/min Est GFR (Non-Af Amer) 99.5 ml/min POC Glucose 199 H (70-99) mg/dl Random Vancomycin 9.2 L (10-20) mcg/ml Resident Activity Tracking Resident Involvement: Resident Care Provided Care Provided: Adult [facility] Medicine (1) Hypertension Hypertension type: unspecified Qualified Code(s): I10 - Essential (primary) hypertension
[2022-04-24] MEDS: PRAVASTATIN SOD 10 MG TAB PO SCH (17:51)
--- NOTE | 2022-04-24 18:06 | Billing Data ---
Date of Service April 24, 2022 Coding Level of Care Code 35483 Subseq Hosp Care Lvl 3
[2022-04-24] MEDS: OLANZapine ZYDIS 5 MG ORALLY DIS. TAB PO SCH ×2 (19:13→20:50)
[2022-04-24] MEDS: OLANZapine 10 MG/2.1 ML SDV IM PRN (19:25)
[2022-04-24] MEDS: HEPARIN SOD 5,000 UNIT/0.5 ML VIAL SQ SCH (20:55)
[2022-04-25] MEDS: VANCOMYCIN HCL 1,250 MG in SODIUM CHLORIDE 0.9% 250 ML IV SCH ×2 (00:23→12:13)
[2022-04-25] MEDS: CARBIDOPA/LEVODOPA 25/100MG TAB PO SCH ×5 (00:23→15:30)
[2022-04-25] MEDS: ENTACAPONE 200 MG TAB PO SCH ×5 (00:23→15:31)
[2022-04-25] MEDS: cefTRIAXone SODIUM 2,000 MG in DEXTROSE 5% 50 ML IV SCH (06:18)
[2022-04-25 06:33] LABS: Basophils # (auto) 0.01 K/uL (0-0.2); Basophils % (auto) 0.1 %; Eosinophils # (auto) 0.09 K/uL (0-0.5); Hematocrit (blood only) 41.3 % (42-52); Hemoglobin 14.6 g/dL (14.0-18.0); Immature Granulocytes # (auto) 0.01 K/uL (0.00-0.02); Immature Granulocytes % (auto) 0.1 %; Lymphocytes # (auto) 0.56 K/uL (1.2-3.4); Lymphocytes % (auto) 6.5 %; Mean Corpuscular Hemoglobin 31.7 pg (25-34); Mean Corpuscular Hgb Conc 35.4 g/dL (32-36); Mean Corpuscular Volume 89.6 fL (80-100); Mean Platelet Volume 9.1 fL (7.4-10.4); Monocytes # (auto) 1.14 K/uL (0.11-0.59); Monocytes % (auto) 13.2 %; Neutrophils # (auto) 6.81 K/uL (1.4-6.5); Neutrophils % (auto) 79.1 %; Platelet Count 233 K/uL (130-400); RDW Coefficient of Variation 12.6 % (11.5-14.5); RDW Standard Deviation 41.5 fL (36.4-46.3); Red Blood Count 4.61 M/uL (4.7-6.1); White Blood Count 8.62 K/uL (4.8-10.8)
[2022-04-25 07:07] LABS: Albumin Globulin Ratio 1.2 (0.9-2); Albumin Level 3.6 gm/dl (3.4-5.0); BUN Creatinine Ratio 22.4 (10-20); Bilirubin,Total 0.7 mg/dl (0.2-1.0); Calcium 8.5 mg/dl (8.5-10.1); Creatinine Clr Calc Pharmacy 101.1 ml/min; Est GFR (Non-African American) 100.1 ml/min; Potassium 3.8 mmol/L (3.5-5.1); Total Protein 6.6 gm/dl (6.0-8.3)
[2022-04-25] MEDS: INSULIN ASPART PER UNIT SC SCH ×3 (08:37→17:21)
[2022-04-25] MEDS: DOCUSATE SODIUM 100 MG CAP PO SCH (08:41)
[2022-04-25] MEDS: SENNA 8.6 MG TAB PO SCH (08:41)
[2022-04-25] MEDS: POLYETHYLENE (MIRALAX) 17 GM PACK PO SCH (08:42)
[2022-04-25] MEDS: HEPARIN SOD 5,000 UNIT/0.5 ML VIAL SQ SCH (08:42)
[2022-04-25] MEDS ORDERED: amLODIPine BESYLATE 5 MG TAB PO SCH (09:00)
[2022-04-25] MEDS ORDERED: LANTUS PER UNIT CHARGE SQ SCH (09:00)
--- NOTE | 2022-04-25 09:38 | Electrocardiogram Report ---
Test Reason : Blood Pressure : / mmHG Vent. Rate : 102 BPM Atrial Rate : 102 BPM P-R Int : 138 ms QRS Dur : 064 ms QT Int : 326 ms P-R-T Axes : 027 036 000 degrees QTc Int : 424 ms Poor data quality, interpretation may be adversely affected Sinus tachycardia Nonspecific ST and T wave abnormality Abnormal ECG When compared with ECG of 22-APR-2022 04:40, Non-specific change in ST segment in Anterior leads T wave inversion no longer evident in Anterior leads QT has shortened Confirmed by Ethan Ponce ([id number]) on 04/25/2022 9:37:39 AM Referred By: REFERRED SELF Confirmed By:Ethan Ponce
--- NOTE | 2022-04-25 11:11 | Hospitalist Progress Note ---
Date of Service April 25, 2022 Assessment & Plan (1) Agitation: Plan: 66yo male with a history of Parkinson's disease s/p bilateral DBS placement (2018), left DBS generator wound infection s/p removal (04/18/22), HTN, HLD, and DM2 presents with a two-day history of episodic agitation and combativeness in the setting of recent left-sided DBS removal and wound washout for surgical site infection. Patient typically follows with [facility] neurology as well as recently had a deep brain stimulator washout with removal with [facility] neurosurgery. In the setting of patient's delirium with unknown prognosis we found it appropriate for possible transfer to [facility]. After discussion with [facility]'s transfer team patient was accepted and will be transferred once a bed is available. Discussed case with patient's who agrees with plan. Delirium, agitation, combativeness, Parkinson's disease -Presented with new acute-onset episodic delirium in the setting of recent deep brain stimulation (DBS) line removal due to infection and multiple changes in environment -On admission, mildly tachycardic to 100s, vitals otherwise stable, patient afebrile -In the ED, patient required a total of 3mg Ativan, 5 mg Zyprexa, 2.5mg Haldol, and 225mcg fentanyl before combativeness resolved -No leukocytosis, no electrolyte derangements, LFTs wnl. -Lactate 2.3 on admission, peaked; Blood and UA cultures neg -EKG: NSR, nonspecific T wave abnormality -CT head: motion artifact but no evidence of acute intracranial abnormality -Psychiatry consult: * Following second episode of agitation both Haldol and Seroquel discontinued in favor of Zyprexa d/t difficulty with delivery. * Zyprexa sublingual scheduled, IM dose prn, IV ativan prn (3rd line) * Could consider clonidine to avoid EPS * daily EKG -Neurology consult: Holding amantadine, benztropine. Otherwise, continue Parkinson's meds per home regimen * Sinemet 25-100 mg ER twice daily (1 tablet at noon 1 tablet at 3 AM) * Ykpmieono-agmbkkdi-npiphchvcq [id number] mg IR 7XD. Pharmacy only has carbidopa-levodopa combo pill. Entacapone 200 mg ordered non-formulary (pharmacy has limited supply-56) -tolerating PO, NG tube removed (04/24) -much improved today relative to yesterday, cont. to monitor. Left DBS line infection (s/p post removal) * IV vancomycin (through 05/02/22), IV ceftriaxone (through 05/02/2022) GI dysmotility -Stool burden seen on KUB x-ray. No evidence of inspissated stool in the rectum. Nonobstructive bowel gas pattern -Following initiation of bowel regimen, nursing reports some bowel movement, albeit hard and small * MiraLAX 34g bid; Senokot 8.6 mg qam * Continue home Fleet enema suppository; as needed milk of magnesia, Colace 100 mg daily Elevated troponin- peaked -peaked 276 -Patient without chest pain (per patient's ), no overt ischemic change on EKG; no further work-up indicated DM2 -HbA1c 8.2% (03/27/22) -Patient's home regimen held on admission -Continue BSG checks, SSI, hypoglycemic protocol HTN: restarted home amlodipine since BP elevated HLD: cont. home pravastatin FEN: DM2 easy to chew Code status: DNR/DNI DVT ppx: heparin 5000mg q12 sq Dispo: PCU/tele (2) Delirium: (3) Diabetes mellitus, insulin dependent (IDDM), uncontrolled: (4) Hypertension: (5) Hypercholesterolemia: (6) Parkinson disease: (7) Wound infection: Admission and Anticipated Discharge Date Admission Date: April 21, 2022 Subjective Patient seen at bedside this morning. No agitation overnight, pt slept well. Generally feeling better today. More alert. Review of Systems Review of Systems: All systems reviewed & are unremarkable except as noted in HPI & below Physical Exam Physical Exam: General: Thin, in no acute distress. HEENT: NC/AT. EOMI. Moist mucosal membranes. Neck: Supple. No lymphadenopathy. CV: RRR. Normal S1 and S2. No murmurs, gallops, or rubs. No pedal edema. Respiratory: Mild bibasilar crackles. No rhonchi, or wheezes. Abdomen: Soft, nontender, nondistended abdomen. No guarding or rebound. Skin: Incision site with stitches on head show no signs of infection, non erythematous. Psych: Responds to questions appropriately, makes conversation. AOx3. Results & Data Results & Data ([facility]) Vital Signs (Past 12 Hours) Vital Signs Temp Pulse Pulse Resp BP BP Pulse Ox 04/25/22 07:22 37.0 C 110 H 20 180/85 H 91 04/25/22 07:21 102 H 04/25/22 04:25 99 H 04/25/22 03:48 37.0 C 106 H 18 177/82 H 96 Laboratory Results 04/25/22 04/25/22 04/25/22 Range/Units 07:37 06:10 06:10 WBC 8.62 (4.8-10.8) K/uL RBC 4.61 L (4.7-6.1) M/uL Hgb 14.6 (14.0-18.0) g/dL Hct 41.3 L (42-52) % MCV 89.6 (80-100) fL MCH 31.7 (25-34) pg MCHC 35.4 (32-36) g/dL RDW Std Deviation 41.5 (36.4-46.3) fL RDW Coeff of Velma 12.6 (11.5-14.5) % Plt Count 233 (130-400) K/uL MPV 9.1 (7.4-10.4) fL Immature Gran % (Auto) 0.1 % Neut % (Auto) 79.1 % Lymph % (Auto) 6.5 % Griggs % (Auto) 13.2 % Eos % (Auto) 1.0 % Baso % (Auto) 0.1 % Neut # (Auto) 6.81 H (1.4-6.5) K/uL Lymph # (Auto) 0.56 L (1.2-3.4) K/uL Griggs # (Auto) 1.14 H (0.11-0.59) K/uL Eos # (Auto) 0.09 (0-0.5) K/uL Baso # (Auto) 0.01 (0-0.2) K/uL Immature Gran # (Auto) 0.01 (0.00-0.02) K/uL Sodium 138 (136-145) mmol/L Potassium 3.8 (3.5-5.1) mmol/L Chloride 105 (98-107) mmol/L Carbon Dioxide 24 (21-32) mmol/L Anion Gap 9 (3-11) BUN 15 (6-23) mg/dl Creatinine 0.67 (0.6-1.4) mg/dl Est Cr Clr Drug Dosing 101.1 ml/min Est GFR ( Amer) 116.0 ml/min Est GFR (Non-Af Amer) 100.1 ml/min BUN/Creatinine Ratio 22.4 H (10-20) Glucose 253 H (70-99(Fasting)) mg/dl POC Glucose 229 H (70-99) mg/dl Calcium 8.5 (8.5-10.1) mg/dl Total Bilirubin 0.7 (0.2-1.0) mg/dl AST 13 (13-39) U/L ALT 6 L (7-52) U/L Alkaline Phosphatase 67 (34-104) U/L Total Protein 6.6 (6.0-8.3) gm/dl Albumin 3.6 (3.4-5.0) gm/dl Globulin 3.0 (2.5-4.0) gm/dl Albumin/Globulin Ratio 1.2 (0.9-2) 04/24/22 04/24/22 04/24/22 Range/Units 20:10 16:24 11:46 WBC (4.8-10.8) K/uL RBC (4.7-6.1) M/uL Hgb (14.0-18.0) g/dL Hct (42-52) % MCV (80-100) fL MCH (25-34) pg MCHC (32-36) g/dL RDW Std Deviation (36.4-46.3) fL RDW Coeff of Velma (11.5-14.5) % Plt Count (130-400) K/uL MPV (7.4-10.4) fL Immature Gran % (Auto) % Neut % (Auto) % Lymph % (Auto) % Griggs % (Auto) % Eos % (Auto) % Baso % (Auto) % Neut # (Auto) (1.4-6.5) K/uL Lymph # (Auto) (1.2-3.4) K/uL Griggs # (Auto) (0.11-0.59) K/uL Eos # (Auto) (0-0.5) K/uL Baso # (Auto) (0-0.2) K/uL Immature Gran # (Auto) (0.00-0.02) K/uL Sodium (136-145) mmol/L Potassium (3.5-5.1) mmol/L Chloride (98-107) mmol/L Carbon Dioxide (21-32) mmol/L Anion Gap (3-11) BUN (6-23) mg/dl Creatinine (0.6-1.4) mg/dl Est Cr Clr Drug Dosing ml/min Est GFR ( Amer) ml/min Est GFR (Non-Af Amer) ml/min BUN/Creatinine Ratio (10-20) Glucose (70-99(Fasting)) mg/dl POC Glucose 205 H 162 H 216 H (70-99) mg/dl Calcium (8.5-10.1) mg/dl Total Bilirubin (0.2-1.0) mg/dl AST (13-39) U/L ALT (7-52) U/L Alkaline Phosphatase (34-104) U/L Total Protein (6.0-8.3) gm/dl Albumin (3.4-5.0) gm/dl Globulin (2.5-4.0) gm/dl Albumin/Globulin Ratio (0.9-2) Resident Activity Tracking Resident Involvement: Resident Care Provided Care Provided: Adult Hospital Medicine (1) Hypertension Hypertension type: unspecified Qualified Code(s): I10 - Essential (primary) hypertension
--- NOTE | 2022-04-25 11:24 | Communication Note ---
Date of Service: April 25, 2022 Interim progress reviewed. Less agitation overall since NGT removed. Was calling out and unable to take po Zyprexa last pm, got IM after which more cooperative with meds/overnight. Will follow.
--- NOTE | 2022-04-25 13:05 | Neurology Progress Note ---
Date of Service April 25, 2022 Assessment & Plan (1) Parkinson disease: Plan: 1. continue Sinemet 50/200 mg every 3 hours starting at 0600 - midnight 2. continue entacapone 200 mg along with Sinemet every 3 hours starting at 0600 - midnight 3. CR Sinemet has been used PRN 4. continue antibiotics 5. PT/OT once able to be assessed 6. hold Amantadine, Cogentin 7. close observation (2) Delirium: Plan: 1. limit the use of ativan and other benzos 2. psychiatry on board for management of agitation Admission and Anticipated Discharge Date Admission Date: April 25, 2022 Supervising Physician Co-Signing Physician Notes I have seen and discussed above patient with Dr Ada Frias, neurology Subjective Evgeny is a 66 year old male with a [facility]- Parkinson's disease s/p bilateral DBS placement (2017), left DBS generator wound infection s/p removal (04/18/22), HTN, HLD, and DM2 presents with a two-day history of episodic agitation and combativeness. The left DBS generator replaced on 03/06/22 (by [facility] neurosurgery); unfortunately, the surgical site became infected, requiring neurosurgical removal of the DBS and washout of the wound two days ago (04/18). He was discharged to [facility] one day ago (04/19). On the drive to [facility] his noted that he had an hour-long episode of agitation/delirium during which he was "saying nasty things he would never say to me" as well as making biza rre/delusional statements (e.g. "this is all a conspiracy against me"). His notes this has never happened before. This agitation/delirium spontaneously resolved prior to arrival to [facility]. His called their neurologist, who recommended discontinuing all Parkinson's meds temporarily to "wash them out". Later that night, he had another episode, and became combative with [facility] staff. She went back to [facility] on 04/20 in the morning, at which time patient had another episode of agitation/delirium, this time lasting 2-3 hours before spontaneously resolving. Between episodes of agitation/delirium. Later in the day on 04/20, he had another episode which was severe enough to prompt presenting to the ER 04/21/22. She feels each episode is more severe and longer in duration than the last. He required three security guards to hold him still; He had a total of 3mg ativan, 5mg zyprexa, 2.5mg haldol, and 225mcg fentanyl before his combativeness resolved. Physical Exam Physical Exam: Physical Exam: Constitutional: appearance ill appearing, neck supple Ears, Nose, Mouth and Throat: mucous membranes moist, no injection and skin normal, eyes normal Cardiovascular: normal S-1 and S-2 and regular rate and rhythm Respiratory: course breath sounds Musculoskeletal: no peripheral edema Skin: sutures left parietal area of head, sutures left chest wall. Eyes: unable to assess NEUROLOGIC EXAMINATION: Mental status: sedated sleeping Cranial Nerves facial symmetry Reflexes: decreased reflexes throughout up going toes bilaterally Sensory: reacts to light touch, no cogwheeling bilaterally Gait/Stance: Posture lying in bed Strength: unable to assess Results & Data ([facility]) Vital Signs (Past 12 Hours) Vital Signs Temp Pulse Pulse Resp BP BP Pulse Ox 04/25/22 12:43 36.9 C 106 H 20 163/77 H 93 04/25/22 07:22 37.0 C 110 H 20 180/85 H 91 04/25/22 07:21 102 H 04/25/22 04:25 99 H 04/25/22 03:48 37.0 C 106 H 18 177/82 H 96
[2022-04-25] MEDS: PRAVASTATIN SOD 10 MG TAB PO SCH (17:23)
--- NOTE | 2022-04-25 18:45 | Discharge Summary ---
Date of Service April 25, 2022 Admission HPI Per Admitting Provider 66yo male with a history of Parkinson's disease s/p bilateral DBS placement (2018), left DBS generator wound infection s/p removal (04/18/22), HTN, HLD, and DM2 presents with a two-day history of episodic agitation and combativeness. Patient had his left DBS generator replaced on 03/06/22 (by [facility] neurosurgery); unfortunately, the surgical site became infected, requiring neurosurgical removal of the DBS and washout of the wound two days ago (04/18). Patient was discharged to [facility] one day ago (04/19). On the drive to [facility], patient's noted that patient had an hour-long episode of agitation/delirium during which he was "saying nasty things he would never say to me" as well as making bizarre/delusional statements (e.g. "this is all a conspiracy against me"). Patient's notes this has never happened before, and patient is alert, oriented, and logical at baseline. This agitation/delirium spontaneously resolved prior to arrival to [facility]. Patient's called their neurologist, who recommended discontinuing all Parkinson's meds temporarily to "wash them out" (according to patient's ). Later that night, patient had another episode, and became combative with [facility] staff. Patient' s went back to [facility] on 04/20 in the morning, at which time patient had another episode of agitation/delirium, this time lasting 2-3 hours before spontaneously resolving. Between episodes of agitation/delirium, patient was at his baseline, per patient's . Later in the day on 04/20, patient had another episode which was severe enough to prompt presenting to the emergency department. Patient's notes each episode is more severe and longer in duration than the last. In the ED, patient was combative and required three security guards to hold him still; patient required a total of 3mg ativan, 5mg zyprexa, 2.5mg haldol, and 225mcg fentanyl before his combativeness resolved. Patient is currently somnolent and unable to participate in history-taking or ROS, but patient's denies patient has had any recent fever, chills, CP, SOB, abdominal pain, nausea, vomiting, diarrhea, or other symptoms. Of note, patient was placed on vanc/cefepime after his left DBS line was removed; these were to be continued through 05/02/22. However, in response to patient's new-onset delirium, patient's [facility] neurologist recommended discontinuing cefepime and starting ceftriaxone instead due to AMS being a possible a side-effect of cefepime. Admission Exam Per Admitting Provider Constitutional: somnolent, laying in hospital bed HEENT: NCAT, MMM CV: regular rhythm, no murmur appreciated, extremities well-perfused, no LE edema Resp: mild rhonchi heard at bases bilaterally, no wheezes/rales appreciated, no increased work of breathing GI: soft, nondistended, nontender, BS normoactive MSK: no gross deformities appreciated Skin: sutured surgical site noted on left chest, mild erythema, no purulence Neuro: somnolent but arousable, tremor noted in UE bilaterally, unable to perform full neurologic exam due to sedation Principal Diagnosis agitation, delirium Discharge Exam General: Thin, in no acute distress. HEENT: NC/AT. EOMI. Moist mucosal membranes. Neck: Supple. No lymphadenopathy. CV: RRR. Normal S1 and S2. No murmurs, gallops, or rubs. No pedal edema. Respiratory: Mild bibasilar crackles. No rhonchi, or wheezes. Abdomen: Soft, nontender, nondistended abdomen. No guarding or rebound. Skin: Incision site with stitches on head show no signs of infection, non erythematous. Psych: Responds to questions appropriately, makes conversation. AOx3. Discharge Data Allergies Allergy/AdvReac Type Severity Reaction Status Date / Time ibuprofen Allergy Unknown Verified 04/20/22 21:17 lisinopril Allergy Unknown Verified 04/20/22 21:17 losartan Allergy Unknown Verified 04/20/22 21:17 pramipexole [From Mirapex] Allergy Unknown Verified 04/21/22 01:33 Consultations 04/21/22 00:04 ED Decision to Admit Stat 04/21/22 07:00 Consult Neurology Routine Consult Psychiatry Routine 04/25/22 17:21 Burn CD for patient Stat Ordered Studies Laboratory Results WBC 8.62 K/uL (4.8-10.8) 04/25/22 06:10 RBC 4.61 M/uL (4.7-6.1) L 04/25/22 06:10 Hgb 14.6 g/dL (14.0-18.0) 04/25/22 06:10 Hct 41.3 % (42-52) L 04/25/22 06:10 MCV 89.6 fL (80-100) 04/25/22 06:10 MCH 31.7 pg (25-34) 04/25/22 06:10 MCHC 35.4 g/dL (32-36) 04/25/22 06:10 RDW Std Deviation 41.5 fL (36.4-46.3) 04/25/22 06:10 RDW Coeff of Velma 12.6 % (11.5-14.5) 04/25/22 06:10 Plt Count 233 K/uL (130-400) 04/25/22 06:10 MPV 9.1 fL (7.4-10.4) 04/25/22 06:10 Immature Gran % (Auto) 0.1 % 04/25/22 06:10 Neut % (Auto) 79.1 % 04/25/22 06:10 Lymph % (Auto) 6.5 % 04/25/22 06:10 [place] % (Auto) 13.2 % 04/25/22 06:10 Eos % (Auto) 1.0 % 04/25/22 06:10 Baso % (Auto) 0.1 % 04/25/22 06:10 Neut # (Auto) 6.81 K/uL (1.4-6.5) H 04/25/22 06:10 Lymph # (Auto) 0.56 K/uL (1.2-3.4) L 04/25/22 06:10 [place] # (Auto) 1.14 K/uL (0.11-0.59) H 04/25/22 06:10 Eos # (Auto) 0.09 K/uL (0-0.5) 04/25/22 06:10 Baso # (Auto) 0.01 K/uL (0-0.2) 04/25/22 06:10 Immature Gran # (Auto) 0.01 K/uL (0.00-0.02) 04/25/22 06:10 Absolute Nucleated RBC Cancelled 04/20/22 21:15 Nucleated RBC % (auto) Cancelled 04/20/22 21:15 Neutrophils % (Manual) Cancelled 04/20/22 21:15 Band Neutrophils % Cancelled 04/20/22 21:15 Lymphocytes % (Manual) Cancelled 04/20/22 21:15 Prolymphocyte % Cancelled 04/20/22 21:15 Reactive Lymphs % (Man) Cancelled 04/20/22 21:15 Monocytes % (Manual) Cancelled 04/20/22 21:15 Eosinophils % (Manual) Cancelled 04/20/22 21:15 Basophils % (Manual) Cancelled 04/20/22 21:15 Metamyelocytes % (Man) Cancelled 04/20/22 21:15 Myelocytes % (Man) Cancelled 04/20/22 21:15 Promyelocytes % (Man) Cancelled 04/20/22 21:15 Blast Cells % (Manual) Cancelled 04/20/22 21:15 Plasma Cell % (Manual) Cancelled 04/20/22 21:15 Other Cells % Cancelled 04/20/22 21:15 Nucleated RBC % Cancelled 04/20/22 21:15 Neutrophils # (Manual) Cancelled 04/20/22 21:15 Band Neutrophils # Cancelled 04/20/22 21:15 Total Absolute Neuts Cancelled 04/20/22 21:15 Lymphocytes # (Manual) Cancelled 04/20/22 21:15 Prolymphocyte # Cancelled 04/20/22 21:15 Reactive Lymphs # Cancelled 04/20/22 21:15 Total Abs Lymphocytes Cancelled 04/20/22 21:15 Monocytes # (Manual) Cancelled 04/20/22 21:15 Eosinophils # (Manual) Cancelled 04/20/22 21:15 Basophils # (Manual) Cancelled 04/20/22 21:15 Metamyelocytes # (Man) Cancelled 04/20/22 21:15 Myelocytes # (Manual) Cancelled 04/20/22 21:15 Promyelocytes # (Man) Cancelled 04/20/22 21:15 Blast Cells # (Man) Cancelled 04/20/22 21:15 Plasma Cell # (Manual) Cancelled 04/20/22 21:15 Other Cells # Cancelled 04/20/22 21:15 Nucleated RBCs # (Man) Cancelled 04/20/22 21:15 Hypersegmented Neuts Cancelled 04/20/22 21:15 Hyposegmented Neuts Cancelled 04/20/22 21:15 Hypogranular Neuts Cancelled 04/20/22 21:15 Large Granular Lymphs Cancelled 04/20/22 21:15 # Lrg Granular Lymphs Cancelled 04/20/22 21:15 Hairy Cells Cancelled 04/20/22 21:15 Smudge Cells Cancelled 04/20/22 21:15 Toxic Granulation Cancelled 04/20/22 21:15 Toxic Vacuolation Cancelled 04/20/22 21:15 Dohle Bodies Cancelled 04/20/22 21:15 Anthony Rods Cancelled 04/20/22 21:15 Platelet Estimate Cancelled 04/20/22 21:15 Hypogranular Platelets Cancelled 04/20/22 21:15 Clumped Platelets Cancelled 04/20/22 21:15 Giant Platelets Cancelled 04/20/22 21:15 Platelet Satelliting Cancelled 04/20/22 21:15 RBC Morphology Cancelled 04/20/22 21:15 Polychromasia Cancelled 04/20/22 21:15 Hypochromasia Cancelled 04/20/22 21:15 Poikilocytosis Cancelled 04/20/22 21:15 Basophilic Stippling Cancelled 04/20/22 21:15 Anisocytosis Cancelled 04/20/22 21:15 Microcytosis Cancelled 04/20/22 21:15 Macrocytosis Cancelled 04/20/22 21:15 Spherocytes Cancelled 04/20/22 21:15 Pappenheimer Bodies Cancelled 04/20/22 21:15 Sickle Cells Cancelled 04/20/22 21:15 Target Cells Cancelled 04/20/22 21:15 Tear Drop Cells Cancelled 04/20/22 21:15 Ovalocytes Cancelled 04/20/22 21:15 Stomatocytes Cancelled 04/20/22 21:15 [place] Bodies Cancelled 04/20/22 21:15 Echinocytes Cancelled 04/20/22 21:15 Acanthocytes (Spur) Cancelled 04/20/22 21:15 Rouleaux Cancelled 04/20/22 21:15 RBC Agglutinates Cancelled 04/20/22 21:15 Schistocytes Cancelled 04/20/22 21:15 Sezary Cell Cancelled 04/20/22 21:15 Sodium 138 mmol/L (136-145) 04/25/22 06:10 Potassium 3.8 mmol/L (3.5-5.1) 04/25/22 06:10 Chloride 105 mmol/L (98-107) 04/25/22 06:10 Carbon Dioxide 24 mmol/L (21-32) 04/25/22 06:10 Anion Gap 9 (3-11) 04/25/22 06:10 BUN 15 mg/dl (6-23) 04/25/22 06:10 Creatinine 0.67 mg/dl (0.6-1.4) 04/25/22 06:10 Est Cr Clr Drug Dosing 101.1 ml/min 04/25/22 06:10 Est GFR ( Amer) 116.0 ml/min 04/25/22 06:10 Est GFR (Non-Af Amer) 100.1 ml/min 04/25/22 06:10 BUN/Creatinine Ratio 22.4 (10-20) H 04/25/22 06:10 Glucose 253 mg/dl (70-99(Fasting)) H 04/25/22 06:10 POC Glucose 172 mg/dl (70-99) H 04/25/22 16:14 Lactate 1.5 mmol/L (0.4-2.0) 04/21/22 01:09 Calcium 8.5 mg/dl (8.5-10.1) 04/25/22 06:10 Magnesium 2.0 mg/dl (1.7-2.4) 04/20/22 21:15 Total Bilirubin 0.7 mg/dl (0.2-1.0) 04/25/22 06:10 AST 13 U/L (13-39) 04/25/22 06:10 ALT 6 U/L (7-52) L 04/25/22 06:10 Alkaline Phosphatase 67 U/L (34-104) 04/25/22 06:10 Troponin I High Sens 232.8 pg/ml (0-20) H* 04/21/22 07:33 Total Protein 6.6 gm/dl (6.0-8.3) 04/25/22 06:10 Albumin 3.6 gm/dl (3.4-5.0) 04/25/22 06:10 Globulin 3.0 gm/dl (2.5-4.0) 04/25/22 06:10 Albumin/Globulin Ratio 1.2 (0.9-2) 04/25/22 06:10 TSH 0.916 uIu/ml (0.300-4.500) 04/20/22 21:15 Urine Color Dark Yellow 04/22/22 14:30 Urine Appearance Cloudy (Clear) A 04/22/22 14:30 Urine pH 6.0 (4.5-7.5) 04/22/22 14:30 Ur Specific [place] 1.029 (1.000-1.030) 04/22/22 14:30 Urine Protein 1+ (Negative) H 04/22/22 14:30 Urine Glucose (UA) 3+ (Negative) H 04/22/22 14:30 Urine Ketones 3+ (Negative) H 04/22/22 14:30 Urine Blood Negative (Negative) 04/22/22 14:30 Urine Nitrite Positive (Negative) A 04/22/22 14:30 Urine Bilirubin Negative (Negative) 04/22/22 14:30 Urine Urobilinogen Negative (Negative) 04/22/22 14:30 Ur Leukocyte Esterase Trace (Negative) H 04/22/22 14:30 Urine WBC (Auto) 1-5 /hpf (0-5) 04/22/22 14:30 Urine RBC (Auto) 5-10 /hpf (0-4) H 04/22/22 14:30 U Hyaline Cast (Auto) 10-30 /lpf (0-5) H 04/22/22 14:30 U Epithel Cells (Auto) >30 /lpf (0-5) H 04/22/22 14:30 Urine Bacteria (Auto) Negative (Negative) 04/22/22 14:30 Nasal Screen MRSA (PCR) Negative (Negative) 04/21/22 17:13 Random Vancomycin 9.2 mcg/ml (10-20) L 04/24/22 06:02 Hepatitis C Ab (EIA) NON-REACTIVE (NON-REACTIVE) 04/21/22 05:58 Hep C Ab Signal/Cutoff 0.11 (<1.00) 04/21/22 05:58 SARS-CoV-2, RNA, NAAT NEGATIVE (NEGATIVE) 04/20/22 14:[address] 04/20/22 20:23 CT head/brain wo con CLINICAL HISTORY: 66 years-old Male with altered. Acutely altered mental status TECHNIQUE: Multiple axial CT images of the head were obtained without contrast. A dose lowering technique was utilized adhering to the principles of ALARA. CT DOSE: 1842.80 mGy.cm COMPARISON: None. FINDINGS: No acute intracranial hemorrhage, midline shift, intracranial mass, hydrocephalus, territorial ischemia or abnormal extra-axial collection. Motion degraded exam. The study is limited secondary to motion degradation and streak artifact from the bilateral neurostimulator device is with distal leads overlying the thalami. The study was repeated twice. All 3 sets of images are motion degraded. Nonspecific white matter hypodensities likely represent chronic microvascular ischemic disease. Chronic appearing right cerebellar lacunar infarct. The calvarium is intact. The paranasal sinuses, mastoid air cells, and middle ear cavities are clear. IMPRESSION: 1. Limited study as above. No acute intracranial abnormality identified. 2. Chronic appearing right cerebellar lacunar infarct. 3. Neurostimulator device electrodes overlie the bilateral thalami. ACT 112: Negative or not required by law. The above report was generated using voice recognition software. It may contain grammatical, syntax or spelling errors. Electronically signed by: Chino Solis M.D. 04/21/2022 6:51 AM Chest X-Ray 04/21/22 16:14 XR chest 1V portable CLINICAL HISTORY: NG placement confirmation TECHNIQUE: Single frontal radiograph of the chest was obtained. Comparison: Comparison is made to chest radiographs 08/22/2022 FINDINGS: The enteric tube has been replaced, the side port and tip lie below the diaphragm likely within the stomach. IMPRESSION: Satisfactory position of enteric tube. ACT 112: Negative or not required by law. Electronically signed by: Rebel Wright M.D. 04/21/2022 4:34 PM KUB X-Ray 04/23/22 09:46 KUB CLINICAL HISTORY: NGT placement confirmation COMPARISON STUDY: KUB April 22, 2022. FINDINGS: Tip of nasogastric tube is within the gastric fundus. Large amount of stool within visualized portions of the colon is noted. Right-sided stimulator device is partially imaged. IMPRESSION: Tip of nasogastric tube within the gastric fundus. ACT 112: Negative or not required by law. Electronically signed by: Aditya Long M.D. 04/23/2022 10:47 AM Hospital Course (1) Agitation: 66yo male with a history of Parkinson's disease s/p bilateral DBS placement (2017), left DBS generator wound infection s/p removal (04/18/22), HTN, HLD, and DM2 presents with a two-day history of episodic agitation and combativeness in the setting of recent left-sided DBS removal and wound washout for surgical site infection. Transfer to [facility] (04/25) Patient typically follows with [facility] neurology as well as recently had a deep brain stimulator washout with removal with [facility] neurosurgery. In the setting of patient's delirium with unknown prognosis we found it appropriate for possible transfer to [facility]. After discussion with [facility]'s transfer team patient was accepted. Discussed case with patient's who agrees with plan. Delirium, agitation, combativeness, Parkinson's disease -Presented with new acute-onset episodic delirium in the setting of recent deep brain stimulation (DBS) line removal due to infection and multiple changes in environment -On admission, mildly tachycardic to 100s, vitals otherwise stable, patient afebrile -In the ED, patient required a total of 3mg Ativan, 5 mg Zyprexa, 2.5mg Haldol, and 225mcg fentanyl before combativeness resolved -No leukocytosis, no electrolyte derangements, LFTs wnl. -Lactate 2.3 on admission, peaked; Blood and UA cultures neg -EKG: NSR, nonspecific T wave abnormality -CT head: motion artifact but no evidence of acute intracranial abnormality -Psychiatry consult: * Following second episode of agitation both Haldol and Seroquel discontinued in favor of Zyprexa d/t difficulty with delivery. * Zyprexa sublingual scheduled, IM dose prn, IV ativan prn (3rd line) * Could consider clonidine to avoid EPS * daily EKG -Neurology consult: Holding amantadine, benztropine. Otherwise, continue Parkinson's meds per home regimen * Sinemet 25-100 mg ER twice daily (1 tablet at noon 1 tablet at 3 AM) * Klthusprv-rfenccwh-jtkkfxoiet 95325-204 mg IR 7XD. Pharmacy only has carbidopa-levodopa combo pill. Entacapone 200 mg ordered non-formulary (pharmacy has limited supply-56) -tolerating PO, NG tube removed (04/24) -much improved today relative to yesterday, cont. to monitor. Left DBS line infection (s/p post removal) * IV vancomycin (through 05/02/22), IV ceftriaxone (through 05/02/2022) GI dysmotility -Stool burden seen on KUB x-ray. No evidence of inspissated stool in the rectum. Nonobstructive bowel gas pattern -Following initiation of bowel regimen, nursing reports some bowel movement, albeit hard and small * MiraLAX 34g bid; Senokot 8.6 mg qam * Continue home Fleet enema suppository; as needed milk of magnesia, Colace 100 mg daily Elevated troponin- peaked -peaked 276 -Patient without chest pain (per patient's ), no overt ischemic change on EKG; no further work-up indicated DM2 -HbA1c 8.2% (03/27/22) -Patient's home regimen held on admission -Continue BSG checks, SSI, hypoglycemic protocol HTN: restarted home amlodipine since BP elevated HLD: cont. home pravastatin (2) Delirium: (3) Diabetes mellitus, insulin dependent (IDDM), uncontrolled: (4) Hypertension: (5) Hypercholesterolemia: (6) Parkinson disease: (7) Wound infection: Total Time Total Time Spent Total Time Spent (In Minutes): 30 Discharge Plan Discharge Items Patient Disposition: Transfer Acute Care Hospital Reason For Visit: AGITATION, DELIRIUM Discharge Diagnosis: Agitation, Delirium Condition on Discharge: Fair Activity: Per Instructions section Non-emergency contact: Primary Care Provider and Neurologist Call non-emergency contact if: you have any medication questions and your symptoms worsen Follow-up/Referrals: Jaylen Ryan MD [Primary Care Provider] - Diet: Carb Consistent or DM2 Addtl Attending Provider Instructions: per amaris Pending Studies at Discharge: No Stand-Alone Forms: My [employer] Skilled Items Patient informed of condition?: Yes DNR: Yes Discharge Level of Care: Other Communicable Disease: No Discharge Prognosis: Improving Lines: Peripheral IV Urinary Catheter: Yes (external) Medications and DC Order Prescriptions: New heparin, porcine (PF) 5,000 unit/0.5 mL Syringe 5,000 unit subcut Q12 Qty: 0.5 RF: 0 carbidopa-levodopa [Sinemet] 25-100 mg Tablet 2 tab PO 0000 Qty: 1 RF: 0 carbidopa-levodopa [Sinemet] 25-100 mg Tablet 2 tab PO 0600,0900,1200,1500,1800,2100 Qty: 1 RF: 0 carbidopa-levodopa 25-100 mg Tablet Extended Release 1 tab PO BID@0300,1200 Qty: 1 RF: 0 entacapone 200 mg Tablet 200 mg PO 0600,0900,1200,1500,1800,2100 Qty: 1 RF: 0 entacapone 200 mg Tablet 200 mg PO 0000 Qty: 1 RF: 0 olanzapine 5 mg Tablet,Disintegrating 2.5 mg PO HS Qty: 1 RF: 0 olanzapine 10 mg Recon Soln 2.5 mg IM BID PRN (Reason: agitation) Qty: 1 RF: 0 insulin glargine [Lantus U-100 Insulin] 100 unit/mL Solution 5 unit subcut DAILY Qty: 1 RF: 0 Continued sennosides-docusate sodium [Senokot-S] 8.6-50 mg Tablet 1 tab-cap PO DAILY PRN (Reason: Constipation) RF: 0 magnesium hydroxide [Milk of Magnesia] 400 mg/5 mL Suspension 30 ml PO DAILY PRN (Reason: Constipation) RF: 0 Fleet Enema 19-7 gram/118 mL Enema 133 ml [place] DAILY PRN (Reason: Constipation) RF: 0 docusate sodium 100 mg Tablet 100 mg PO BID RF: 0 Vancocin [id number] 0 ml IV BID RF: 0 amlodipine 2.5 mg tablet 2.5 mg PO DAILY RF: 0 pravastatin 10 mg Tablet 10 mg PO HS RF: 0 sodium chloride 0.9 % (flush) [Normal Saline Flush] Syringe 10 ml IV BID RF: 0 Maxipime Ivpb 2gm=50ml See Rx Instructions .ROUTE .COMPLEX RF: 0 Discontinued quetiapine 25 mg tablet 12.5 mg PO HS RF: 0 carbidopa-levodopa [Sinemet] 25-100 mg Tablet See Rx Instructions .ROUTE .COMPLEX RF: 0 Inbrija 42 mg capsule, w/inhalation device 84 mg INHALATION .5XSDAY PRN (Reason: ..) RF: 0 amantadine HCl 100 mg tablet 100 mg TID RF: 0 benztropine 0.5 mg tablet 0.5 mg HS RF: 0 insulin glargine [Lantus Solostar U-100 Insulin] 100 unit/mL (3 mL) insulin pen See Rx Instructions .ROUTE .COMPLEX RF: 0 xljyvldgv-xmeyapml-rzyggkddbx 50-200-200 mg tablet See Rx Instructions .ROUTE .COMPLEX RF: 0 aspirin 81 mg tablet,delayed release (DR/EC) 81 mg DAILY RF: 0 Discharge Orders: Discharge Order (Routine); Ordered 04/25/22 Ordered By: Del Hayes Admission Data Admit Date/Time: 04/25/22 10:55 Attending Provider: Del Hayes Admit Provider: Everett Camarena Primary Care Provider: Jaylen Ryan Other Providers: Dean Contreras ; Paula Vallejo ; Ashley Crouch ; Arelis Vera ; Ezra Rogers ; [facility] ; Karla Nunez Other Interventions: Discharge Summary Assessment (RN) Last Done: 04/25/22 17:52 Supervising Physician Co-Signing Physician Notes I personally examined the patient and verified all beck points of history and exam, discussed case, and agree with decision making with Dr Celis Sitting in bed calm, trying to unlock his phone. No acute complaints. Full HPI and review of systems extremely difficult to ascertain due to his mentation. Vitals noted, in general he is awake fairly disoriented no physical distress. His scalp incision appears to be healing well is stapled, the incision is clean dry and intact there is no surrounding erythema there is no exudate. Breathing unlabored no accessory muscle use good effort. Skin shows no rashes no pallor or icterus. Neuro without clearly lateralizing or focal deficits. Altered mental statuswhile I strongly suspect deliriumwith the factors being multiple hospital and rehab facilities in a short period of time, as well as an infection, surgery, etc.it is somewhat difficult to definitively rule out there is not any ongoing deep brain stimulator infection. Set up for transfer for neurosurgery evaluation - bed available today Otherwise as above Resident Activity Tracking Resident Involvement: Resident Care Provided Care Provided: Adult Hospital Medicine
--- NOTE | 2022-04-25 19:10 | Billing Data ---
Date of Service April 25, 2022 Coding Level of Care Code D/C DAY MANAGEMENT <30 MINS
--- NOTE | 2022-04-25 21:01 | Progress Notes ---
SUBJECTIVE: I am seeing Mr. Savage in followup of delirium post-infection of his battery pack of his left DBS. Gradually, he is improving, requiring less sedation at night with more alertness during the day. He has been afebrile. White count is normal. OBJECTIVE: Current vitals 177/82, 93, 18, 36.9. The patient is awake, alert, oriented to person, but not to place. He thinks he is in [place]. Has no complaints. Able to follow simple commands. Neck is supple. There is normal extraocular motility. Normal facial symmetry. Speech is hypophonic. There is a modest right hand resting tremor. There is some mild rigidity in the legs. Strength is symmetric. IMPRESSION:PD with bl DBS , sp removal left battery pack due to infection.Delirium post-infection and hospitalization. No evidence of a new primary [employer] event. PLAN: Amantadine and Cogentin have been held. He remains on oral levodopa and Comtan. With the help of some Zyprexa, he has been less agitated and somewhat less confused. My understanding is that he is going to be referred to [facility]. I have no objection to that. I would be glad to see him in followup post-discharge. Job ID: [id number] [facility]
--- NOTE | 2022-04-26 06:26 | Electrocardiogram Report ---
Test Reason : Blood Pressure : / mmHG Vent. Rate : 100 BPM Atrial Rate : 100 BPM P-R Int : 114 ms QRS Dur : 074 ms QT Int : 350 ms P-R-T Axes : 068 041 -11 degrees QTc Int : 451 ms Poor data quality, interpretation may be adversely affected Normal sinus rhythm Nonspecific T wave abnormality Abnormal ECG When compared with ECG of 23-APR-2022 11:11, T wave inversion more evident in Anterolateral leads Confirmed by Ethan Ponce ([id number]) on 04/26/2022 6:26:02 AM Referred By: REFERRED SELF Confirmed By:Ethan Ponce
== END 2022-04-25 18:30 | disposition short-term general hospital (02) | DRG 884 ==
LOC: ED 19:55 → 2S 19:55 → SUATTDRO 04-21 01:50 → 2S 04-21 02:40